=== PATIENT | female | born 1950 | race Caucasian/White ===

== ENCOUNTER → 2023-08-15 13:33 | Outpatient (REF) | payer MEDICARE, OTHER, SELFPAY | LOC: REG 13:33 | PROVIDERS: ATTENDING PHYSICIAN Family Medicine | DX: R19.7 Diarrhea, unspecified (principal) | CPT/HCPCS: 87045; 87046; 87324; 87427; 87449 ==

== ENCOUNTER 2023-08-21 20:24 | Inpatient (IN) | payer MEDICARE, OTHER, SELFPAY ==
[2023-08-21] VITALS (7 sets, daily range): BP systolic 131–168; BP diastolic 69–84; BMI 24.0
[2023-08-21 15:01] LABS: % Basophils 0.7 % (0-2); % Immature Granulocytes 0.5 % (0-0.5); % Lymphocytes 24.7 % (20.5-51.1); % Monocytes 9.5 % (1.7-9.3); % Neutrophils 63.6 % (42.2-75.2); Absolute Basophils 0.1 10^3/uL (0-0.2); Absolute Eosinophils 0.1 10^3/uL (0-0.7); Absolute Monocytes 0.8 10^3/uL (0.1-0.6); Absolute Neutrophils 5.2 10^3/uL (1.4-6.5); Hemoglobin 13.7 g/dL (12.0-16.0); Mean Corp Hgb Conc. 34.3 g/dL (33.0-37.0); Mean Corpuscular Volume 84.7 fL (81.0-99.0); Mean Platelet Volume 8.9 fL (7.4-10.4); Nucleated Red Blood Cells % 0 %; Platelet Count 359 10^3/uL (130-400); Red Blood Cell Count 4.72 10^6/uL (4.20-5.40); Red Cell Dist. Width 12.5 % (11.5-14.5); White Blood Cell Count 8.1 10^3/uL (4.8-10.8)
[2023-08-21 15:11] LABS: Lipase 91 U/L (23-300)
[2023-08-21 15:16] LABS: ALT (SGPT) 613 U/L (0-35); AST (SGOT) 296 U/L (14-36); Alkaline Phosphatase 111 U/L (38-126); Blood Urea Nitrogen 15 mg/dl (7-17); Calcium 9.4 mg/dl (8.4-10.2); Carbon Dioxide 27 mmol/L (22-30); Chloride 99 mmol/L (98-107); Glucose 151 mg/dl (70-99); Sodium 135 mmol/L (135-145); Total Bilirubin 0.5 mg/dl (0.2-1.3); Total Protein 6.6 g/dl (6.3-8.2); eGFR > 60.00
--- NOTE | 2023-08-21 16:21 | ED.GENMED ---
History of Present Illness
General
Chief Complaint: Rectal Bleeding
Source: patient
Exam Limitations: none
Time Seen by Provider: 08/21/23 16:00
Nursing documentation reviewed up to this point in time: agreed with
Travel History
Have you had any contact with someone who has COVID-19?: No
Do you have any symptoms of coronavirus? Fever > 100 degrees, chills, cough, shortness of breath, sore throat, loss of taste or smell, muscle aches, or headache?: No
History of Present Illness
History of Present Illness:
73-year-old female states she has had diarrhea for 2-1/2 weeks. 9 days ago she noticed some blood in the diarrhea so her PCP took stool samples which did not show any bacterial infection. Her appetite has been poor. She started the BRAT diet and
was improved for a few days but 5 days ago bloody diarrhea increased, stopped 2 days ago, but returned 2:30 a.m. today 'even worse.' She does get crampy abd pains prior to diarrhea. Abd pain is 'a little' now, does feel bloated. Denies fever/chills,
denies n/v.
Past History
Past History
ED Past Medical History: HTN and Hypercholesterolemia
ED Past Surgical History:
Social History
Tobacco: Non-smoker
Alcohol: None
Drug: None
Personal:
Living: with family
Review of Systems
Review of Systems
Allergies reviewed?: Yes
All Other Systems: ROS reviewed and negative except as documented in HPI and ROS
Constitutional: Denies fever
Respiratory: Denies trouble breathing
Cardiac: Denies chest pain
ABD/GI: Reports abdominal pain, diarrhea and bloody stools; Denies nausea or vomiting
: Denies dysuria, frequency, difficulty voiding or urgency
Musculoskeletal: Reports no symptoms
Skin: Reports no symptoms
Neurological: Reports no symptoms
Phy Exam
Physical Exam
Physical Exam:
GENERAL: No acute distress. A&Ox3.
CONSTITUTIONAL: Afebrile.
EYES: clear, conjunctivae normal
ENMT: moist mucus membranes, Pharynx nl
RESPIRATORY: Regular respirations, nonlabored, lungs clear.
CARDIOVASCULAR: Regular rate and rhythm, no murmurs, no rubs.
GI: Soft, mildly generally tender, normal BS
MUSCULOSKELETAL: Moves with ease. Well perfused.
SKIN: Warm, dry, pink
PSYCH: Normal mood and affect. Well kept, interactive and appropriate
NEUROLOGIC: Awake, alert and oriented. No focal neurological deficits
Course
Orders/Labs/Results
Orders:
Orders
08/21/23 14:45
C-Reactive Protein Stat
Comment: ADD ON
Complete Blood Count/With Diff Urgent
Comprehensive Metabolic Panel Urgent
Lipase Stat
08/21/23 Dinner
NPO
Allow oral meds: Yes
Allow clear liquids: Sips of Clears
08/21/23 16:42
CT Abd/Pel (IV only)-DH only Urgent
Comment:
Reason For Exam: bloody diarrhea, abd cramps
08/21/23 16:56
Norovirus by PCR Urgent
FRANCIS Source: ST
Specimen Description:
Date Specimen was Collected: 08/21/23
Time Specimen was Collected: 16:53
Comment: Add on by Betzy Muller
STOOL [C difficile Antigen & Toxins] Urgent
FRANCIS Source: Feces/Stool
Specimen Description:
Date Specimen was Collected: 08/21/23
Time Specimen was Collected: 16:53
Stool Culture Urgent
FRANCIS Source: Feces/Stool
Specimen Description:
Date Specimen was Collected: 08/21/23
Time Specimen was Collected: 16:54
08/21/23 18:55
Piperacillin/Tazo 3.375 Gram [Zosyn] 3.375 gram in 50 ml IV NOW
08/21/23 18:58
GASTROINTESTINAL CONSULT Urgent
Consulting Provider: Vivian Bhat
Was physician already notified: Yes
Reason for consult: pancolitis
08/21/23 18:59
Add On- LAB Urgent
Tests Added?: CRP
Add On- LAB Urgent
Tests Added?: Stool WBC
08/21/23 20:00
Admit/Transfer Patient As Directed
Co-Sign Provider:
Level of Care: Inpatient admission
Assign to:: Medical/Surgical
Physician / Group: tee
Diagnosis: pancolitis
Reason for Hospitalization: pancolitis
Expected length of stay greater than two midnights?: Yes
ELOS- Estimated Length of Stay in days: 2
I certify the patient meets the requirements for IP care: Yes
Code Status As Directed
Resuscitation Status: Full Code
08/21/23 20:07
Add On- LAB Urgent
Tests Added?: stool norovirus
08/21/23 20:46
0.9% Sodium Chloride 1000 ml [Nss] 1,000 ml IV 100 mls/hr
Ondansetron Injectable [Zofran] 4 mg IV Q6HPRN PRN
08/21/23 20:46
Activity As Directed
Activity Level: As Tolerated
Pneumatic Compression Sleeves As Directed
Type: Knee high
Vital Signs As Directed
Frequency: Per unit guidelines
DX Deep Vein Thrombosis Video Routine
08/21/23 22:00
Cetirizine HCl [Zyrtec] 10 mg PO HS
Lisinopril [Zestril] 20 mg PO HS
08/22/23 04:00
Piperacillin/Tazo 3.375 Gram [Zosyn] 3.375 gram in 50 ml IV Q6H
08/22/23 06:00
Complete Blood Count/With Diff IN AM
Comprehensive Metabolic Panel IN AM
08/22/23 08:00
Digoxin [Lanoxin] 250 mcg PO DAILY
Lisinopril [Zestril] 10 mg PO DAILY
Verapamil Extended Release [Calan Extended Release] 180 mg PO BID
08/22/23 18:00
omega 6-put-hee-fish oil [Fish Oil] 1 cap PO QPM
Abnormal Lab Results
08/21/23
14:45
Absolute Monos (auto) 0.8 H 10^3/uL
(0.1-0.6)
Monocytes % 9.5 H %
(1.7-9.3)
Glucose 151 H mg/dl
(70-99)
AST 296 H U/L
(14-36)
ALT 613 H* U/L
(0-35)
C-Reactive Protein 39.70 H mg/L
(0.0-10.00)
08/21/23 14:45
08/21/23 14:45
Vital Signs
Initial and Last Documented VS:
Initial Vital Signs
Temp Pulse Resp BP Pulse Ox
98.6 F 110 18 168/81 99
08/21/23 14:37 08/21/23 14:37 08/21/23 14:37 08/21/23 14:37 08/21/23 14:37
Last Documented Vital Signs
Temp Pulse Resp BP Pulse Ox
98.9 F 90 16 147/84 96
08/21/23 20:51 08/21/23 21:42 08/21/23 20:51 08/21/23 21:42 08/21/23 20:51
MDM/Problems Addressed
Differential Diagnosis Includes:
Diverticulitis, ischemic colitis, infectious colitis, fissure
MDM/Problems Addressed:
73-year-old female states she has had diarrhea for 2-1/2 weeks. 9 days ago she noticed some blood in the diarrhea so her PCP took stool samples which did not show any bacterial infection. Her appetite has been poor. She started the BRAT diet and
was improved for a few days but 5 days ago bloody diarrhea increased, stopped 2 days ago, but returned 2:30 a.m. today 'even worse.' She does get crampy abd pains prior to diarrhea. Abd pain is 'a little' now, does feel bloated. Denies fever/chills,
denies n/v.
Afebrile, NAD
CBC normal
CMP: AST elevated at 296, ALT elevated 613.
Mucous bloody stool sent for cultures
08/21/2023 1900 PM
Plan: Admit: Pancolitis, transaminitis
Hospitalist and GI Dr. Bhat notified of admission
GI consult in.
Patient remains comfortable
*Critical Care Note
Total Time (30-74mins, 75-104mins- exclusive of procedures): Not Applicable
ED Attending Note
-
Portions of this chart may have been created with voice recognition software.� Occasional wrong word or��sound alike� substitutions may have occurred due to the inherent limitations of voice recognition software.
Discharge Plan
Departure
Patient Disposition: Admit
Date of Disposition: 08/21/23
Time of Disposition: 18:56
Admit to: Med/Surg
Presentation/result/management discussed w/ accepting MD/DO: Hospitalist
Condition: Fair
Discharge Problem:
Pancolitis, Transaminitis
Interventions
Interventions:
*Risk Screen - Suicide Last Done: 08/21/23 14:40
*General Assessment Last Done: 08/21/23 14:40
*Neglect/Abuse Screening Last Done: 08/21/23 14:40
ED- Fall Risk Assessment Last Done: 08/21/23 20:50
*ED COVID-19 Vaccine History Last Done: 08/21/23 20:28
*Nursing Disposition Last Done: 08/21/23 20:50
NE-Cqswxr-Hwlhcjyqjw Assessment Last Done: 08/21/23 16:22
ED- Cardiac Assessment Last Done: 08/21/23 16:22
ED- Pulmonary Assessment Last Done: 08/21/23 16:22
Discharge Date and Time
Discharge Date/Time: 08/21/23 20:50
[2023-08-21] MEDS: ZOSYN 50 IV (19:11)
--- NOTE | 2023-08-21 20:02 | HPS.HSE ---
Addendum entered and electronically signed by Oli Menjivar MD 08/21/23 20:06:
Continued verapamil.
Original Note:
Family Physician
-
Family Physician: Jorje Nichole
Chief Complaint
-
bloody diarrhea
History of Present Illness
73-year-old female with past medical history of hypertension, hypercholesteremia, SVT presenting with diarrhea for the past 2 and half weeks. 9 days ago she noted some blood in the diarrhea as her primary care physician took a stool samples which
did not show any bacterial infection. Appetites been poor. She was started on brat diet which improved for few days but 5 days ago bloody diarrhea increased and again stopped 2 days ago but returned at 2:30 AM today even worse than previously.
She has been getting crampy abdominal pain prior to diarrhea. Does feel bloated. Has chills but denies fever. Denies nausea or vomiting.
She denies any recent travel or eating any questionable restaurant food although she did have some [place] food yesterday.
Denies any history of GI problems.
Drinks alcohol occasionally. Denies smoking.
Medical History
Past Medical History
Past Medical History: Reports Other (hypertension, hypercholesteremia, SVT)
Past Surgical History: Reports None
Social History
Tobacco: Non-smoker
Alcohol: Occasional
Drug: None
Family History
Family History: Not pertinent
Allergies / Home Medications
Allergies reflects when Allergies were last updated in [employer].
Home Medications with original date entered in [employer]
Allergy/Medication List:
Allergies
Allergy/AdvReac Type Severity Reaction Status Date / Time
Sulfa (Sulfonamide Allergy 'gigantic Verified 08/21/23 14:37
Antibiotics) hives'
cats Allergy itchey eyes Uncoded 04/01/23 21:38
molds/pollen Allergy Unknown Uncoded 04/01/23 21:38
Home Medications
MILK THISTLE 1 cap PO DAILY@1330 06/04/09
verapamil 180 mg 24 hr capsule,extended release 180 mg PO BID 06/04/09
digoxin 250 mcg (0.25 mg) tablet 250 mcg PO DAILY 04/01/23
Berberine 1 tab PO QPM 08/21/23
Cbd Oil 1 dose PO HS 08/21/23
Eleuthero 1 tab PO DAILY 08/21/23
L-Lysine 1 tab PO DAILY 08/21/23
Lactobac no.2-Bifidobac no.1-S. thermo 112.5 billion cell capsule (Visbiome) 1 cap PO DAILY 08/21/23
MSM 1 dose PO DAILY 08/21/23
Nmn Supplement 1 cap PO DAILY 08/21/23
Prebiotic Powder 1 dose PO DAILY 08/21/23
Rhodiola Rosea 1 tab PO BID 08/21/23
RAS-e 1 tab PO HS 08/21/23
[place]'s wort 1 cap PO BID 08/21/23
Turmeric +Bioperine + Curcumin 1 tab PO DAILY 08/21/23
Vitamin C 1 tab PO DAILY@132908/21/23
acetylcarnitine HCl 250 mg capsule 250 mg PO DAILY@132908/21/23
acetylcysteine 600 mg capsule (NAC) 600 mg PO DAILY 08/21/23
alpha lipoic acid 1 tab PO DAILY 08/21/23
apple cider vinegar 1 tbsp PO BID 08/21/23
bergamot extract 500 mg capsule (Bristol Bergamot) 500 mg PO DAILY 08/21/23
boron 6 mg tablet 6 mg PO QPM 08/21/23
cetirizine 10 mg tablet 10 mg PO HS 08/21/23
cholecalciferol (vitamin D3) 1 tab PO DAILY 08/21/23
cinnamon bark extract 500 mg tablet 1,000 mg PO QPM 08/21/23
coQ10 (ubiquinol) 200 mg capsule 200 mg PO DAILY@132908/21/23
cyanocobalamin (vitamin B-12) 1 tab PO DAILY 08/21/23
glucosamine sulf dipot chlr,msm,chond 550 mg-C 30 mg-bernadette 1 mg capsule (Glucosamine Chondroitin) 1 cap PO BID 08/21/23
lisinopril 10 mg tablet 10 mg PO DAILY 08/21/23
lisinopril 10 mg tablet 20 mg PO HS 08/21/23
magnesium 1 tab PO QPM 08/21/23
omega 2-xyz-xem-fish oil 1,000 mg (120 mg-180 mg) capsule (Fish Oil) 1 cap PO QPM 08/21/23
pantethine 1 cap PO DAILY 08/21/23
quercetin 500 mg capsule 500 mg PO DAILY 08/21/23
selenium 1 tab PO DAILY@1330 08/21/23
vitamin A 1 tab PO DAILY 08/21/23
vitamin K 1 tab PO DAILY 08/21/23
zinc 1 tab PO DAILY 08/21/23
Review of Systems
-
History Source: Patient
A 12 point ROS was completed and negative except as noted: Yes
Constitutional: Reports No Symptoms
EENT: Reports No Symptoms
Respiratory: Reports No Symptoms
Cardiac: Reports No Symptoms
Abdomen/GI: Reports See HPI
: Reports No Symptoms
Musculoskeletal: Reports No Symptoms
Skin: Reports No Symptoms
Neurological: Reports No Symptoms
Endocrine: Reports No Symptoms
Hematologic/Lymphatic: Reports No Symptoms
Psych: Reports No Symptoms
Physical Exam
Vital Signs
Vital Signs
Temp Pulse Resp BP Pulse Ox
98.6 F 88 15 136/82 98
08/21/23 14:37 08/21/23 19:15 08/21/23 19:15 08/21/23 18:00 08/21/23 19:15
Physical Exam
General: Well Developed, Well Nourished and No Apparent Distress
HEENT: NormoCephalic, Moist mucous membranes and Atraumatic
Respiratory: Clear
Cardiac: S1/S2 and Regular Rhythm; No Murmur or Rub
GI: Soft, Non Distended, Normal Bowel Sounds and Tender; No Organomegaly
Rectal: Deferred by Provider
Musculoskeletal: No Clubbing, No Cyanosis and No Edema
Skin: No Rash
Neuro: Nonfocal/grossly intact
Laboratory Results
-
08/21/23 14:45
08/21/23 14:45
Laboratory Results
Total Bilirubin 0.5 mg/dl (0.2-1.3) 08/21/23 14:45
AST 296 U/L (14-36) H 08/21/23 14:45
ALT 613 U/L (0-35) H* 08/21/23 14:45
Alkaline Phosphatase 111 U/L (38-126) 08/21/23 14:45
Lipase 91 U/L (23-300) 08/21/23 14:45
Data Reviewed
-
Lab Data: Labs Reviewed by me
Old Records: Reviewed
Impression/Plan
-
IMPRESSION:
PLAN:
# Severe diffuse pancolitis with bloody diarrhea
-Check stool culture, C. difficile, norovirus
-N.p.o.
-IV fluids
-Zosyn
-GI consulted
# Transaminitis likely related to colitis
-CT shows mild upper abdominal ascites
-Continue to monitor
-Hold all supplements for now
History of SVT
-Continue digoxin
Essential hypertension
-Continue lisinopril
Hypercholesterolemia
Full code
DVT prophylaxis�SCDs
N.p.o.
--- NOTE | 2023-08-21 21:00 | PTCARENOTE ---
Received pt from the ED into room 2126. Patient able to ambulate without assistance to the bed. Reviewed history with pt. Pt states pain in stomach 'comes in waves' and is not currently experiencing pain. AAOx3. VSS. Assessment as documented. NS
running at 100ml/hr in L AC. Patient has no further complaints and is resting comfortably in bed with the call heredia within reach.
[2023-08-21] MEDS: NSS 1000 IV (21:04)
[2023-08-21] MEDS: ZESTRIL 20 MG PO (21:41)
[2023-08-21] MEDS: ZYRTEC 10 MG PO (21:41)
[2023-08-21] MEDS: MELATONIN 5 MG PO (21:42)
[2023-08-21] MEDS: CALAN EXTENDED RELEASE 180 MG PO (21:42)
[2023-08-22] MEDS: ZOSYN 50 IV ×4 (03:53→22:34)
[2023-08-22 05:15] VITALS: BMI 24.0
[2023-08-22 05:22] LABS: % Eosinophils 3.7 % (0-6); % Immature Granulocytes 0.5 % (0-0.5); % Lymphocytes 31.8 % (20.5-51.1); % Monocytes 10.6 % (1.7-9.3); % Neutrophils 52.4 % (42.2-75.2); Absolute Basophils 0.1 10^3/uL (0-0.2); Absolute Eosinophils 0.3 10^3/uL (0-0.7); Absolute Lymphocytes 2.5 10^3/uL (1.2-3.4); Absolute Monocytes 0.8 10^3/uL (0.1-0.6); Absolute Neutrophils 4.1 10^3/uL (1.4-6.5); Hematocrit 37.6 % (37.0-47.0); Hemoglobin 12.7 g/dL (12.0-16.0); Mean Corp Hgb Conc. 33.8 g/dL (33.0-37.0); Mean Corpuscular Hgb 28.7 pg (27.0-31.0); Mean Corpuscular Volume 85.1 fL (81.0-99.0); Mean Platelet Volume 9.3 fL (7.4-10.4); Nucleated Red Blood Cells % 0 %; Platelet Count 327 10^3/uL (130-400); Red Blood Cell Count 4.42 10^6/uL (4.20-5.40); Red Cell Dist. Width 12.5 % (11.5-14.5); White Blood Cell Count 7.8 10^3/uL (4.8-10.8)
[2023-08-22 05:32] LABS: ALT (SGPT) 519 U/L (0-35); AST (SGOT) 253 U/L (14-36); Albumin 3.5 g/dl (3.5-5.0); Alkaline Phosphatase 105 U/L (38-126); Blood Urea Nitrogen 10 mg/dl (7-17); Calcium 8.7 mg/dl (8.4-10.2); Carbon Dioxide 23 mmol/L (22-30); Chloride 104 mmol/L (98-107); Estimated Creatinine Clearance 66 ml/min; Glucose 105 mg/dl (70-99); Potassium 3.5 mmol/L (3.5-5.1); Sodium 135 mmol/L (135-145); Total Bilirubin 0.6 mg/dl (0.2-1.3); eGFR > 60.00
[2023-08-22] MEDS: NSS 1000 IV (07:43)
[2023-08-22 07:54] VITALS: BP 127/63
[2023-08-22] MEDS: CALAN EXTENDED RELEASE 180 MG PO ×2 (08:38→19:51)
[2023-08-22] MEDS: LANOXIN 250 MCG PO (08:39)
[2023-08-22] MEDS: ZESTRIL 10 MG PO (08:39)
--- NOTE | 2023-08-22 11:07 | W.PN.HOSP.TC ---
Today's Communication/Plan
-
Add on stool studies
Stop all ljwu-bxy-pepqmae medicines
GI evaluation
Assessment / Plan
Assessment / Plan
73-year-old female with diarrhea for the past 2 and half weeks. Patient stated that she had some postnasal drip and some URI symptoms 2 and half weeks ago. She states that it is normal for her to have loose stools when she has a URI and postnasal
drip. She stated that it got better but it came back. Has some cramps but no real pain. No recent antibiotic use or travel. She lives with her he does not have any symptoms like this. No history of inflammatory bowel disease
On examination awake alert oriented
Cardiovascular system S1-S2 appreciated
Abdomen slightly distended, nontender
No edema
Neuro nonfocal
# Severe pancolitis with bloody diarrhea
C. difficile negative, norovirus negative
Repeat cultures pending cultures from 08/15/2023 negative
Yersinia and also Giardia-added on
Stool for WBC
Continue antibiotics
GI evaluation
If no answers with the stools may need flex sig to rule out microscopic colitis or IBD
Patient is on 33 different ofeo-sxa-klvwqot supplements
Unclear if some of this can cause her symptoms
Colonoscopy 2018-nonbleeding internal hemorrhoids, 6 mm polyp in the transverse colon
Sips of clears and IVF
# Transaminitis
Patient is on 33 different dpbl-yfh-qtcclbv supplements
Check hepatitis serologies
Imaging of Liver and gallbladder unremarkable as per CT
Defer to GI if patient needs Dopplers
# Hypertension continue lisinopril
# History of SVTs-continue verapamil, Digoxin
Check Dig Level.
# DVT prophylaxis-SCDs given bloody bowel movements
# Full code
Discussed with nursing
Anticipated Discharge: 24 - 48 hours
Subjective/Interval History
-
Date of Service: August 22, 2023
Objective Data
-
Labs:
Laboratory Results
08/22/23
04:24
WBC 7.8
Hgb 12.7
Hct 37.6
Plt Count 327
Sodium 135
Potassium 3.5
Chloride 104
Carbon Dioxide 23
BUN 10
Creatinine 0.6
Glucose 105 H
Calcium 8.7
Total Bilirubin 0.6
AST 253 H
ALT 519 H*
Alkaline Phosphatase 105
Vital Signs:
Vital Signs
Temp Pulse Resp BP Pulse Ox
98.3 F 74 14 127/63 97
08/22/23 07:54 08/22/23 08:39 08/22/23 07:54 08/22/23 08:38 08/22/23 09:59
I&O
08/21/23 08/22/23 08/23/23
06:59 06:59 06:59
Intake Total 1410 / 1410
Balance 1410 / 1410
[2023-08-22 12:02] LABS: Digoxin 0.8 ng/ml (0.8-2.0)
[2023-08-22] MEDS: D5/0.45%NSS with KCL 10 MEQ 1000 IV (12:04)
--- NOTE | 2023-08-22 12:49 | CON.GI ---
Addendum entered and electronically signed by Vivian Bhat DO 08/22/23 16:56:
Patient seen and examined independently of [facility]. I agree with her note with my additions below
Zaida is a 73-year-old female with no known inflammatory bowel disease who presents with roughly 3 to 4 weeks of diarrhea followed by bloody stools. Intermittently throughout the year she will has episodes of more softer and some mucus but always
formed. With no travel, no change in medications she started having diarrhea including nocturnal with multiple episodes. Over a week ago she started having blood mixed in with the diarrhea. Has abdominal discomfort but no severe pain. She had
outpatient stool studies as well as here which have been negative for C. difficile, Salmonella Shigella Campylobacter, Legionella urinary antigen, still waiting on WBCs, Yersinia, Giardia cryptosporidium. She denies any significant nausea vomiting
fever or chills. She lost her appetite during this and has only lost a couple of pounds. Since her admission she is already improving. She only had 2 stools today and her abdomen is less tender this afternoon.
# Bloody diarrhea -CT scan with IV contrast only shows severe diffuse pancolitis with significant wall thickening of the entire colon
-- Likely infectious versus inflammatory
--Patient is hemodynamically stable, normal CBC with no anemia and no leukocytosis
-- So far stool studies have been negative
-- I offered her a flexible sigmoidoscopy tomorrow but she would like to be more conservative since she is already starting to improve
-- Her colonoscopy in [address] Galicia did not show any signs of inflammatory bowel disease
--- continue antibiotics since the diarrhea is bloody
--Clear liquid diet
--If patient does not dramatically improve over the weekend would do at least a flexible sigmoidoscopy on Saturday otherwise a full colonoscopy outpatient with Dr. Galicia upon recovery
Hepatocellular injury#
-- This is new. No prior history of elevated liver enzymes. Normal total bilirubin and alkaline phosphatase. Likely in infectious in nature
--Monitor and trend
--CT scan showed normal liver
--Avoid hepatotoxins
--Hepatitis panel already ordered
Original Note:
Consultation
-
Date/Time Consultation Requested: 08/21/23 1858
Date/Time Consultation Performed: 08/22/23 1230
Requesting Provider: ERN[facility] Nevraez
Performing Provider: Dr.. Bhat/[facility] You
Reason for Consultation: pancolitis
Medical History
Chief Complaint / HPI
Chief Complaint: bloody diarrhea
History of Present Illness:
73-year-old female with past medical history Lyme disease, SVT, hypertension, hyperlipidemia, osteopenia as well as adenoma 2019 presents the emergency room with almost 3-week history of diarrhea followed by bloody diarrhea. Asked to evaluate for
the same. Patient states that over the past 4 to 5 weeks she has noticed that her stools have become softer. She states that intermittently when she has postnasal drip she notices that her stools become on the soft side and she notices that she
also has mucus coating those bowel movements as well. She states this has been ongoing for years. She states that over the past 3 weeks following that initial 5 weeks her stools became progressively soft to then loose and diarrhea-like. Over the
past 3 weeks she has had diarrhea-like stools that were then watery and then over the past week has had intermittent episodes of blood mixed within her stools. She sought the assistance of her primary care physician over the past week and had
outpatient stool studies performed. These were performed on 08/15/2023 they were negative for C. difficile,Negative for Salmonella/Shigella, negative for Campylobacter and negative for E. coli/Shigella.The patient then stated that she did not have
much of an appetite and she was eating a brat like diet. She states that she then became ravenous and started eating more and that produced more watery bowel movements. She then had more blood within her stools. She called her PCP again and he
stated that she would proceed to the emergency room at that point. The patient felt 'chilled'. However denies any fevers, melena, abdominal pain, dysphagia or odynophagia. She has no family history of inflammatory bowel disease that she is aware
of. She has no joint pains or rashes. She is not taking any anti-inflammatories. She does take multiple jvix-upr-akijqma supplements however she was not taking any of these during that time. She has had no recent travel, no recent antibiotics,
no sick contacts, she has not eaten anything recently that was raw or spoiled. She denies any cough. She does have well water however her lives with her and he is not ill. She has not visited or has been in any contact with any animals
other than her 2 cats. This morning she only had 1 episode of a small amount of brown stool mixed with some bright red blood. She is tolerating a clear liquid diet (no red liquids). She only has some abdominal cramping associated with bowel
movements.
Past Medical History
Past Medical History: Arrhythmias (SVT), HTN, Hypercholesterolemia and Other (Lyme disease, osteopenia, colon polyp (tubular adenoma 2019))
Past Surgical History: None
Social History
Tobacco: Non-Smoker
Alcohol: Occasional
Drug: None
Personal:
Living: With Family
Family History
Family History: Other (No fam hx of GI malignancy or IBD)
Allergies / Home Medications
Allergy/AdvReac Type Severity Reaction Status Date / Time
Sulfa (Sulfonamide Allergy 'gigantic Verified 08/21/23 14:37
Antibiotics) hives'
vaccine adjuvant system, Allergy Swelling Verified 08/21/23 20:39
AS01B liposomal
cats Allergy itchey eyes Uncoded 04/01/23 21:38
molds/pollen Allergy Unknown Uncoded 04/01/23 21:38
Medication Instructions Recorded
MILK THISTLE 1 cap PO DAILY@1330 06/04/09
verapamil 180 mg 24 hr 180 mg PO BID 06/04/09
capsule,extended release
digoxin 250 mcg (0.25 mg) tablet 250 mcg PO DAILY 04/01/23
Berberine 1 tab PO QPM 08/21/23
Cbd Oil 1 dose PO HS 08/21/23
Eleuthero 1 tab PO DAILY 08/21/23
L-Lysine 1 tab PO DAILY 08/21/23
Lactobac no.2-Bifidobac no.1-S. 1 cap PO DAILY 08/21/23
thermo 112.5 billion cell capsule
(Visbiome)
MSM 1 dose PO DAILY 08/21/23
Nmn Supplement 1 cap PO DAILY 08/21/23
Prebiotic Powder 1 dose PO DAILY 08/21/23
Rhodiola Rosea 1 tab PO BID 08/21/23
RAS-e 1 tab PO HS 08/21/23
[place]'s wort 1 cap PO BID 08/21/23
Turmeric +Bioperine + Curcumin 1 tab PO DAILY 08/21/23
Vitamin C 1 tab PO DAILY@132908/21/23
acetylcarnitine HCl 250 mg capsule 250 mg PO DAILY@0 08/21/23
acetylcysteine 600 mg capsule (NAC) 600 mg PO DAILY 08/21/23
alpha lipoic acid 1 tab PO DAILY 08/21/23
apple cider vinegar 1 tbsp PO BID 08/21/23
bergamot extract 500 mg capsule 500 mg PO DAILY 08/21/23
([place] Bergamot)
boron 6 mg tablet 6 mg PO QPM 08/21/23
cetirizine 10 mg tablet 10 mg PO HS 08/21/23
cholecalciferol (vitamin D3) 1 tab PO DAILY 08/21/23
cinnamon bark extract 500 mg tablet 1,000 mg PO QPM 08/21/23
coQ10 (ubiquinol) 200 mg capsule 200 mg PO DAILY@1330 08/21/23
cyanocobalamin (vitamin B-12) 1 tab PO DAILY 08/21/23
glucosamine sulf dipot 1 cap PO BID 08/21/23
chlr,msm,chond 550 mg-C 30 mg-bernadette
1 mg capsule (Glucosamine
Chondroitin)
lisinopril 10 mg tablet 10 mg PO DAILY 08/21/23
lisinopril 10 mg tablet 20 mg PO HS 08/21/23
magnesium 1 tab PO QPM 08/21/23
omega 4-lob-ehj-fish oil 1,000 mg 1 cap PO QPM 08/21/23
(120 mg-180 mg) capsule (Fish Oil)
pantethine 1 cap PO DAILY 08/21/23
quercetin 500 mg capsule 500 mg PO DAILY 08/21/23
selenium 1 tab PO DAILY@1330 08/21/23
vitamin A 1 tab PO DAILY 08/21/23
vitamin K 1 tab PO DAILY 08/21/23
zinc 1 tab PO DAILY 08/21/23
Review of Systems
-
All other systems: A 12 pt ROS was Negative except as stated above in HPI
Vital Signs
Temp Pulse Resp BP Pulse Ox
98.3 F 74 14 127/63 97
08/22/23 07:54 08/22/23 08:39 08/22/23 07:54 08/22/23 08:38 08/22/23 09:59
Physical Exam
Exam
General: No Apparent Distress
HEENT: Normocephalic and Anicteric
Respiratory: Clear
Cardiac: Regular Rhythm
GI: Soft, Non Tender, Normal Bowel Sounds and Distended (mildly distended)
Musculoskeletal: No Edema
Skin: Warm and Dry
Neuro: AO x 3
Psych: Calm
Results
WBC 7.8 10^3/uL (4.8-10.8) 08/22/23 04:24
Hgb 12.7 g/dL (12.0-16.0) 08/22/23 04:24
Hct 37.6 % (37.0-47.0) 08/22/23 04:24
MCV 85.1 fL (81.0-99.0) 08/22/23 04:24
Plt Count 327 10^3/uL (130-400) 08/22/23 04:24
Absolute Neuts (auto) 4.1 10^3/uL (1.4-6.5) 08/22/23 04:24
Sodium 135 mmol/L (135-145) 08/22/23 04:24
Potassium 3.5 mmol/L (3.5-5.1) 08/22/23 04:24
Chloride 104 mmol/L (98-107) 08/22/23 04:24
Carbon Dioxide 23 mmol/L (22-30) 08/22/23 04:24
BUN 10 mg/dl (7-17) 08/22/23 04:24
Creatinine 0.6 mg/dL (0.6-1.0) 08/22/23 04:24
Calcium 8.7 mg/dl (8.4-10.2) 08/22/23 04:24
Total Bilirubin 0.6 mg/dl (0.2-1.3) 08/22/23 04:24
AST 253 U/L (14-36) H 08/22/23 04:24
ALT 519 U/L (0-35) H* 08/22/23 04:24
Alkaline Phosphatase 105 U/L (38-126) 08/22/23 04:24
Lipase 91 U/L (23-300) 08/21/23 14:45
Diagnostic Image Results:
CT Abd/Pelvis with IV contrast only:
Severe diffuse pancolitis with significant wall thickening of the entire colon.
Prior GI Procedures:
EGD: never
Colonoscopy: 06/24/2018 (Do) �- Non-bleeding internal hemorrhoids.
�� � � � � � � � � � - One 6 mm polyp in the transverse colon, removed with a
�� � � � � � � � � � jumbo cold forceps. Resected and retrieve (tubular adenoma)
Assessment / Plan
-
73-year-old female with past medical history Lyme disease, SVT, hypertension, hyperlipidemia, osteopenia as well as adenoma 2018 presents the emergency room with almost 3-week history of diarrhea followed by bloody diarrhea. Asked to evaluate for
the same. Patient states that over the past 4 to 5 weeks she has noticed that her stools have become softer. She states that intermittently when she has postnasal drip she notices that her stools become on the soft side and she notices that she
also has mucus coating those bowel movements as well. She states this has been ongoing for years. She states that over the past 3 weeks following that initial 5 weeks her stools became progressively soft to then loose and diarrhea-like. Over the
past 3 weeks she has had diarrhea-like stools that were then watery and then over the past week has had intermittent episodes of blood mixed within her stools. Laboratory data shows WBC 7.8, hemoglobin 12.7, hematocrit 37.6, platelet count 327
Sodium 135, potassium 3.5, BUN 10, creatinine 0.6, total bilirubin 0.6, AST of 253 down from 296, ALT of 519, down from 613, alk phos 105, CRP of 39.7, lipase 91. Outpatient stool studies performed on 08/15/23 were negative for C. difficile,Negative
for Salmonella/Shigella, negative for Campylobacter and negative for E. coli/Shigella.Currently we are pending repeats as well as stool for crypto, WBC and giardia. Acute Hepatitis panel was also ordered given transaminitis. Patient has not been
hypotensive here and denies any issues of near syncope at home. Prior LFTs have been normal in the past. Patient has been off of her OTC supplements for a couple weeks.
Impression:
Diarrhea, slow onset over a couple weeks
Pancolitis on CT
Transaminitis
Plan:
-Await Giardia, crypo, Stool WBC
-Clears (no reds)
-Check Hepatitis panel
-Check urine legionella
-LFTs, INR, CBC in am
-Check ESR (CRP already elevated)
-To consider at least flex sig in patient if above unrevealing to r/o IBD. Patient is due for colonoscopy. Will need in 8 weeks anyway for repeat screening.
-Further recommendations to be forthcoming.
Data Reviewed
-
CT Scan: Report Reviewed by me
Old Records: Reviewed
-
-
Thank you for consultation and allowing me to participate in the patient's care. Please call the cloth sponger GI physician during the after hours with any questions or concerns.
[2023-08-22 14:27] LABS: Erythrocyte Sed Rate 6 mm/hour (0-20)
[2023-08-22 15:05] VITALS: BP 132/63
--- NOTE | 2023-08-22 15:42 | CM ---
Initial assessment completed with patient ( in room). Patient lives in a 2 story home with basement and 2 steps to enter, B/B on 2nd and 1/2 bath on . [employer] patient was independent, drove and retired. No Services and No DME. No psychiatric
history. [facility]acy is [facility] in [place] and PCP is Dr. Nichole @ [facility] in [place]. ANTICIPATE NO NEEDS AT DISCHARGE.
[2023-08-22] MEDS: ZYRTEC 10 MG PO (22:34)
[2023-08-22] MEDS: ZESTRIL 20 MG PO (22:34)
[2023-08-22] MEDS: MELATONIN 5 MG PO (23:01)
[2023-08-22 23:50] VITALS: BP 132/62
[2023-08-23] MEDS: D5/0.45%NSS with KCL 10 MEQ 1000 IV ×2 (03:11→14:51)
[2023-08-23] MEDS: ZOSYN 50 IV ×4 (04:04→21:47)
[2023-08-23 04:42] VITALS: BMI 24.5
[2023-08-23 06:45] LABS: INR 1.18
[2023-08-23 06:48] LABS: Hematocrit 32.3 % (37.0-47.0); Hemoglobin 10.9 g/dL (12.0-16.0); Mean Corp Hgb Conc. 33.7 g/dL (33.0-37.0); Mean Corpuscular Hgb 28.9 pg (27.0-31.0); Mean Corpuscular Volume 85.7 fL (81.0-99.0); Mean Platelet Volume 9.4 fL (7.4-10.4); Platelet Count 289 10^3/uL (130-400); Red Blood Cell Count 3.77 10^6/uL (4.20-5.40); Red Cell Dist. Width 12.6 % (11.5-14.5); White Blood Cell Count 7.7 10^3/uL (4.8-10.8)
[2023-08-23 06:59] LABS: ALT (SGPT) 349 U/L (0-35); AST (SGOT) 122 U/L (14-36); Albumin 2.9 g/dl (3.5-5.0); Alkaline Phosphatase 85 U/L (38-126); Blood Urea Nitrogen 6 mg/dl (7-17); Calcium 8.5 mg/dl (8.4-10.2); Carbon Dioxide 27 mmol/L (22-30); Chloride 102 mmol/L (98-107); Estimated Creatinine Clearance 66 ml/min; Glucose 121 mg/dl (70-99); Potassium 3.4 mmol/L (3.5-5.1); Sodium 136 mmol/L (135-145); Total Bilirubin 0.4 mg/dl (0.2-1.3); Total Protein 5.1 g/dl (6.3-8.2); eGFR > 60.00
[2023-08-23 07:27] LABS: Hepatitis B Surface Antigen Negative (Negative)
[2023-08-23 07:30] VITALS: BP 126/65
[2023-08-23 07:33] LABS: Hepatitis A IgM Antibody Negative (Negative); Hepatitis B Core Ab, IgM Negative (Negative)
[2023-08-23 07:44] LABS: Hepatitis B Core Ab, Total Negative (Negative); Hepatitis B Surface Antibody Negative; Hepatitis C Antibody Negative (Negative)
[2023-08-23 07:52] LABS: Hepatitis A Antibody, Total Negative (Negative)
[2023-08-23] MEDS: CALAN EXTENDED RELEASE 180 MG PO ×2 (08:55→19:50)
[2023-08-23] MEDS: ZESTRIL 10 MG PO (08:55)
[2023-08-23] MEDS: LANOXIN 250 MCG PO (08:55)
[2023-08-23] MEDS: KCL 40 MEQ PO (10:50)
[2023-08-23 11:14] LABS: Iron 43 ug/dl (37-170)
[2023-08-23 11:23] LABS: Percent Saturation 15 % (20-50); Total Iron Binding Capacity 276 ug/dl (265-497)
--- NOTE | 2023-08-23 11:35 | W.PN.HOSP.TC ---
Today's Communication/Plan
-
Await stools
?Advance diet
follow LFts
Assessment / Plan
Assessment / Plan
73-year-old female with diarrhea for the past 2 and half weeks. Patient stated that she had some postnasal drip and some URI symptoms 2 and half weeks ago. She states that it is normal for her to have loose stools when she has a URI and postnasal
drip. She stated that it got better but it came back. Has some cramps but no real pain. No recent antibiotic use or travel. She lives with her he does not have any symptoms like this. No history of inflammatory bowel disease
On examination awake alert oriented
Cardiovascular system S1-S2 appreciated
Abdomen slightly distended, nontender
No edema
Neuro nonfocal
# Severe pancolitis with bloody diarrhea
C. difficile negative, norovirus negative
Repeat cultures pending cultures from 08/15/2023 negative
Yersinia and also Giardia-added on
Stool for WBC
Continue antibiotics
GI evaluation
If no answers with the stools may need flex sig to rule out microscopic colitis or IBD
Patient is on 33 different vtgj-zmg-aplnkeo supplements
Unclear if some of this can cause her symptoms
Colonoscopy 2019-nonbleeding internal hemorrhoids, 6 mm polyp in the transverse colon
Clears
# Transaminitis
Patient is on 33 different otev-hik-meegeco supplements
Hepatitis serologies neg
Imaging of Liver and gallbladder unremarkable as per CT
Getting better
? Viral
# Hypertension continue lisinopril
# Hypokalemia-replace
# History of SVTs-continue verapamil, Digoxin
Normal Dig Level.
#Anemia- Check Iron and B12
# DVT prophylaxis-SCDs given bloody bowel movements
# Full code
Discussed with nursing
Anticipated Discharge: 24 - 48 hours
Subjective/Interval History
-
Date of Service: August 23, 2023
Objective Data
-
Labs:
Laboratory Results
08/23/23
05:41
WBC 7.7
Hgb 10.9 L
Hct 32.3 L
Plt Count 289
PT 15.0 H
INR 1.18
Sodium 136
Potassium 3.4 L
Chloride 102
Carbon Dioxide 27
BUN 6 L
Creatinine 0.6
Glucose 121 H
Calcium 8.5
Total Bilirubin 0.4
AST 122 H
ALT 349 H
Alkaline Phosphatase 85
Vital Signs:
Vital Signs
Temp Pulse Resp BP Pulse Ox
98.1 F 70 18 126/65 98
08/23/23 07:30 08/23/23 08:55 08/23/23 07:30 08/23/23 08:55 08/23/23 07:30
I&O
08/22/23 08/23/23 08/24/23
06:59 06:59 06:59
Intake Total 1410 / 1410 2115
Balance 1410 / 1410 2115
[2023-08-23 11:50] LABS: Ferritin 89.2 ng/ml (11.1-264.0)
--- NOTE | 2023-08-23 11:52 | W.PN.GI.CBS2 ---
Today's Communication / Plan
-
Pt now agreeable to colonoscopy. Schedule for tomorrow
LFTs trending down. Hep A IgM negative
Stool studies continue to be negative
R/O IBD on colonoscop/bx
Assessment / Plan
-
73-year-old female with past medical history Lyme disease, SVT, hypertension, hyperlipidemia, osteopenia as well as adenoma 2018 presents the emergency room with almost 3-week history of diarrhea followed by bloody diarrhea. Asked to evaluate for
the same. Patient states that over the past 4 to 5 weeks she has noticed that her stools have become softer. She states that intermittently when she has postnasal drip she notices that her stools become on the soft side and she notices that she
also has mucus coating those bowel movements as well. She states this has been ongoing for years. She states that over the past 3 weeks following that initial 5 weeks her stools became progressively soft to then loose and diarrhea-like. Over the
past 3 weeks she has had diarrhea-like stools that were then watery and then over the past week has had intermittent episodes of blood mixed within her stools. Laboratory data shows WBC 7.8, hemoglobin 12.7, hematocrit 37.6, platelet count 327
Sodium 135, potassium 3.5, BUN 10, creatinine 0.6, total bilirubin 0.6, AST of 253 down from 296, ALT of 519, down from 613, alk phos 105, CRP of 39.7, lipase 91. Outpatient stool studies performed on 08/15/23 were negative for C. difficile,Negative
for Salmonella/Shigella, negative for Campylobacter and negative for E. coli/Shigella.Currently we are pending repeats as well as stool for crypto, WBC and giardia. Acute Hepatitis panel was also ordered given transaminitis. Patient has not been
hypotensive here and denies any issues of near syncope at home. Prior LFTs have been normal in the past. Patient has been off of her OTC supplements for a couple weeks.
Impression:
Diarrhea, slow onset over a couple weeks
Pancolitis on CT
Transaminitis
Subjective
Subjective
Date of Service: August 23, 2023
Still having diarrhea, blood tinged.
Objective
Data Reviewed
Laboratory Data:
Laboratory Results
08/23/23 05:41
08/23/23 05:41
Laboratory Results
PT 15.0 Sec (11.4-14.6) H 08/23/23 05:41
INR 1.18 08/23/23 05:41
Magnesium 2.0 mg/dl (1.6-2.3) 08/23/23 05:41
Total Bilirubin 0.4 mg/dl (0.2-1.3) 08/23/23 05:41
AST 122 U/L (14-36) H 08/23/23 05:41
ALT 349 U/L (0-35) H 08/23/23 05:41
Alkaline Phosphatase 85 U/L (38-126) 08/23/23 05:41
Lipase 91 U/L (23-300) 08/21/23 14:45
Vital Signs and I&O:
Vital Signs
Temp Pulse Resp BP Pulse Ox
98.1 F 70 18 126/65 98
08/23/23 07:30 08/23/23 08:55 08/23/23 07:30 08/23/23 08:55 08/23/23 07:30
I&O
08/22/23 08/23/23 08/24/23
06:59 06:59 06:59
Intake Total 1410 / 1410 2115
Balance 1410 / 1410 2115
Physical Exam
Physical Exam
GI: Soft, Non Distended and Non Tender
[2023-08-23 12:05] LABS: Vitamin B12 925 pg/ml (239-931)
[2023-08-23 14:36] VITALS: BMI 24.5
[2023-08-23 15:32] VITALS: BP 131/71
--- NOTE | 2023-08-23 16:04 | CM ---
Colonoscopy on 08/24/23. Discharge Plan of Care: Anticipate no needs.
[2023-08-23] MEDS: NULYTELY SOLUTION 4 LITERS PO (17:20)
[2023-08-23] MEDS: ZYRTEC 10 MG PO (21:47)
[2023-08-23] MEDS: ZESTRIL 20 MG PO (21:51)
[2023-08-23] MEDS: MELATONIN 5 MG PO (22:48)
[2023-08-23 23:30] VITALS: BP 129/60
[2023-08-24] MEDS: ZOSYN 50 IV ×4 (04:16→22:07)
[2023-08-24 04:26] VITALS: BMI 24.3
[2023-08-24 07:03] VITALS: BP 127/70
[2023-08-24 07:46] LABS: Hematocrit 34.9 % (37.0-47.0); Hemoglobin 11.4 g/dL (12.0-16.0); Mean Corp Hgb Conc. 32.7 g/dL (33.0-37.0); Mean Corpuscular Hgb 28.4 pg (27.0-31.0); Mean Corpuscular Volume 86.8 fL (81.0-99.0); Mean Platelet Volume 9.6 fL (7.4-10.4); Platelet Count 300 10^3/uL (130-400); Red Blood Cell Count 4.02 10^6/uL (4.20-5.40); Red Cell Dist. Width 12.5 % (11.5-14.5); White Blood Cell Count 6.3 10^3/uL (4.8-10.8)
[2023-08-24] MEDS: LANOXIN 250 MCG PO (07:54)
[2023-08-24] MEDS: CALAN EXTENDED RELEASE 180 MG PO ×2 (07:55→20:16)
[2023-08-24] MEDS: ZESTRIL 10 MG PO (07:56)
[2023-08-24 08:25] LABS: ALT (SGPT) 356 U/L (0-35); AST (SGOT) 162 U/L (14-36); Albumin 3.3 g/dl (3.5-5.0); Alkaline Phosphatase 96 U/L (38-126); Blood Urea Nitrogen 2 mg/dl (7-17); Calcium 8.5 mg/dl (8.4-10.2); Carbon Dioxide 25 mmol/L (22-30); Chloride 107 mmol/L (98-107); Estimated Creatinine Clearance 66 ml/min; Glucose 99 mg/dl (70-99); Sodium 135 mmol/L (135-145); Total Bilirubin 0.4 mg/dl (0.2-1.3); Total Protein 5.6 g/dl (6.3-8.2); eGFR > 60.00
[2023-08-24 12:15] VITALS: BP 118/59
--- NOTE | 2023-08-24 12:38 | W.PN.HOSP.TC ---
Today's Communication/Plan
-
AB
Await Path
Assessment / Plan
Assessment / Plan
73-year-old female with diarrhea for the past 2 and half weeks. Patient stated that she had some postnasal drip and some URI symptoms 2 and half weeks ago. She states that it is normal for her to have loose stools when she has a URI and postnasal
drip. She stated that it got better but it came back. Has some cramps but no real pain. No recent antibiotic use or travel. She lives with her he does not have any symptoms like this. No history of inflammatory bowel disease
On examination awake alert oriented
Cardiovascular system S1-S2 appreciated
Abdomen slightly distended, nontender
No edema
Neuro nonfocal
Seen earlier prior to colonoscopy. Late documentation
# Severe pancolitis with bloody diarrhea
C. difficile negative, norovirus negative
Repeat cultures pending cultures from 08/15/2023 negative
Yersinia says reslted- cant see
Giardia neg
No bloody stools now
Continue antibiotics
Patient is on 33 different pegc-xbh-inwxmln supplements-Unclear if some of this can cause her symptoms
Colonoscopy 2019-nonbleeding internal hemorrhoids, 6 mm polyp in the transverse colon
Colonoscopy 08/24/2023-procedure was aborted in the ascending colon due to looping and significant colitis. Patchy moderate inflammation in the sigmoid colon, descending colon at the splenic flexure and in the transverse colon and in the ascending
colon. Deep ulcers in the splenic flexure sigmoid erythema throughout the colon rectal sparing. 10 mm polyp removed. Diverticulosis in the sigmoid colon.
Await pathology
Continue antibiotics
# Transaminitis
Patient is on 33 different uvry-soh-hnudsxi supplements
Hepatitis serologies neg
Imaging of Liver and gallbladder unremarkable as per CT
Getting better
? Viral
# Hypertension continue lisinopril
# Hypokalemia-replace
# History of SVTs-continue verapamil, Digoxin
Normal Dig Level.
#Anemia- Check Iron and B12
# DVT prophylaxis-SCDs given bloody bowel movements
# Full code
Discussed with nursing
Anticipated Discharge: > 48 hours
Subjective/Interval History
-
Date of Service: August 24, 2023
Objective Data
-
Labs:
Laboratory Results
08/24/23
06:52
WBC 6.3
Hgb 11.4 L
Hct 34.9 L
Plt Count 300
Sodium 135
Potassium 4.0
Chloride 107
Carbon Dioxide 25
BUN 2 L
Creatinine 0.5 L
Glucose 99
Calcium 8.5
Total Bilirubin 0.4
AST 162 H
ALT 356 H
Alkaline Phosphatase 96
Vital Signs:
Vital Signs
Temp Pulse Resp BP Pulse Ox
97.8 F 73 16 118/59 98
08/24/23 12:15 08/24/23 12:15 08/24/23 12:15 08/24/23 12:15 08/24/23 12:15
I&O
08/23/23 08/24/23 08/25/23
06:59 06:59 06:59
Intake Total 2115 3850 / 3850
Balance 2115 3850 / 3850
[2023-08-24 15:03] VITALS: BP 129/59
[2023-08-24] MEDS: MELATONIN 5 MG PO (22:06)
[2023-08-24] MEDS: ZESTRIL 20 MG PO (22:06)
[2023-08-24] MEDS: ZYRTEC 10 MG PO (22:07)
[2023-08-24 23:08] VITALS: BP 126/57
[2023-08-25] MEDS: ZOSYN 50 IV ×2 (05:00→11:00)
[2023-08-25 05:46] VITALS: BMI 23.9
[2023-08-25 06:00] VITALS: BMI 23.9
[2023-08-25 07:45] VITALS: BP 126/59
[2023-08-25 07:59] LABS: Hematocrit 35.7 % (37.0-47.0); Hemoglobin 11.6 g/dL (12.0-16.0); Mean Corp Hgb Conc. 32.5 g/dL (33.0-37.0); Mean Corpuscular Hgb 28.3 pg (27.0-31.0); Mean Corpuscular Volume 87.1 fL (81.0-99.0); Mean Platelet Volume 9.6 fL (7.4-10.4); Platelet Count 334 10^3/uL (130-400); Red Cell Dist. Width 12.6 % (11.5-14.5); White Blood Cell Count 5.6 10^3/uL (4.8-10.8)
[2023-08-25] MEDS: ZESTRIL 10 MG PO (08:03)
[2023-08-25] MEDS: LANOXIN 250 MCG PO (08:03)
[2023-08-25] MEDS: CALAN EXTENDED RELEASE 180 MG PO (08:03)
[2023-08-25 08:47] LABS: ALT (SGPT) 350 U/L (0-35); AST (SGOT) 174 U/L (14-36); Albumin 3.2 g/dl (3.5-5.0); Alkaline Phosphatase 90 U/L (38-126); Blood Urea Nitrogen 11 mg/dl (7-17); Carbon Dioxide 27 mmol/L (22-30); Chloride 101 mmol/L (98-107); Estimated Creatinine Clearance 66 ml/min; Glucose 95 mg/dl (70-99); Magnesium 2.1 mg/dl (1.6-2.3); Potassium 3.9 mmol/L (3.5-5.1); Sodium 138 mmol/L (135-145); Total Bilirubin 0.3 mg/dl (0.2-1.3); Total Protein 5.6 g/dl (6.3-8.2); eGFR > 60.00
--- NOTE | 2023-08-25 10:14 | W.PN.HOSP.TC ---
Addendum entered and electronically signed by Antony Santizo MD 08/25/23 15:05:
Discussed with GI. Okay for discharge
Offered to talk to patient's family, she declined and stated that her was informed by her of what is going on. She is aware that he can reach me if he has questions.
Patient is aware that she needs to get further treatment after biopsy is back.
Discharged with Augmentin For 1 more week.
Script for labs given
Discharge time 32 minutes
Original Note:
Today's Communication/Plan
-
Await GI rounds to decide the plan
Assessment / Plan
Assessment / Plan
73-year-old female with diarrhea for the past 2 and half weeks. Patient stated that she had some postnasal drip and some URI symptoms 2 and half weeks ago. She states that it is normal for her to have loose stools when she has a URI and postnasal
drip. She stated that it got better but it came back. Has some cramps but no real pain. No recent antibiotic use or travel. She lives with her he does not have any symptoms like this. No history of inflammatory bowel disease
On examination awake alert oriented
Cardiovascular system S1-S2 appreciated
Abdomen slightly distended, nontender
No edema
Neuro nonfocal
Tolerating diet
# Severe pancolitis with bloody diarrhea
C. difficile negative, norovirus negative
Repeat cultures pending cultures from 08/15/2023 negative
Yersinia says resulted- cant see results
Giardia neg
No bloody stools now
Continue antibiotics
Patient is on 33 different wvgr-wrf-cgqwuel supplements-Unclear if some of this can cause her symptoms
Colonoscopy 2018-nonbleeding internal hemorrhoids, 6 mm polyp in the transverse colon
Colonoscopy 08/24/2023-procedure was aborted in the ascending colon due to looping and significant colitis. Patchy moderate inflammation in the sigmoid colon, descending colon at the splenic flexure and in the transverse colon and in the ascending
colon. Deep ulcers in the splenic flexure sigmoid erythema throughout the colon rectal sparing. 10 mm polyp removed. Diverticulosis in the sigmoid colon.
Await pathology
Continue antibiotics
# Transaminitis
Patient is on 33 different qcmt-ojm-xvquqfw supplements
Hepatitis serologies neg
Imaging of Liver and gallbladder unremarkable as per CT
Getting better- slowly
? Viral
# Fluid retention- One dose of Ethacrynate
Likely from IVF
# Hypertension continue lisinopril
# Hypokalemia-replaced
# History of SVTs-continue verapamil, Digoxin
Normal Dig Level.
# Anemia- Check Iron and B12
# DVT prophylaxis-SCDs given bloody bowel movements
She has been ambulating well.
# Full code
Discussed with nursing
Anticipated Discharge: Within 24 hours
Subjective/Interval History
-
Date of Service: August 25, 2023
Objective Data
-
Labs:
Laboratory Results
08/25/23
06:53
WBC 5.6
Hgb 11.6 L
Hct 35.7 L
Plt Count 334
Sodium 138
Potassium 3.9
Chloride 101
Carbon Dioxide 27
BUN 11
Creatinine 0.6
Glucose 95
Calcium 9.0
Total Bilirubin 0.3
AST 174 H
ALT 350 H
Alkaline Phosphatase 90
Vital Signs:
Vital Signs
Temp Pulse Resp BP Pulse Ox
98.3 F 60 16 126/59 96
08/25/23 07:45 08/25/23 08:03 08/25/23 07:45 08/25/23 08:03 08/25/23 07:45
I&O
08/24/23 08/25/23 08/26/23
06:59 06:59 06:59
Intake Total 3850 / 3850 1580 / 1580
Balance 3850 / 3850 158 / 158
[2023-08-25 10:59] VITALS: BP 118/62
[2023-08-25] MEDS: KCL 20 MEQ PO (11:02)
[2023-08-25] MEDS: EDECRIN 25 MG PO (11:02)
--- NOTE | 2023-08-25 14:48 | W.PN.GI.CBS2 ---
Today's Communication / Plan
-
OK for d/c
We will follow up on path as outpt
F/U with Dr Galicia in the office
D/c on abx- augmentin OK
Assessment / Plan
-
73-year-old female with past medical history Lyme disease, SVT, hypertension, hyperlipidemia, osteopenia as well as adenoma 2018 presents the emergency room with almost 3-week history of diarrhea followed by bloody diarrhea. Asked to evaluate for
the same. Patient states that over the past 4 to 5 weeks she has noticed that her stools have become softer. She states that intermittently when she has postnasal drip she notices that her stools become on the soft side and she notices that she
also has mucus coating those bowel movements as well. She states this has been ongoing for years. She states that over the past 3 weeks following that initial 5 weeks her stools became progressively soft to then loose and diarrhea-like. Over the
past 3 weeks she has had diarrhea-like stools that were then watery and then over the past week has had intermittent episodes of blood mixed within her stools. Laboratory data shows WBC 7.8, hemoglobin 12.7, hematocrit 37.6, platelet count 327
Sodium 135, potassium 3.5, BUN 10, creatinine 0.6, total bilirubin 0.6, AST of 253 down from 296, ALT of 519, down from 613, alk phos 105, CRP of 39.7, lipase 91. Outpatient stool studies performed on 08/15/23 were negative for C. difficile,Negative
for Salmonella/Shigella, negative for Campylobacter and negative for E. coli/Shigella.Currently we are pending repeats as well as stool for crypto, WBC and giardia. Acute Hepatitis panel was also ordered given transaminitis. Patient has not been
hypotensive here and denies any issues of near syncope at home. Prior LFTs have been normal in the past. Patient has been off of her OTC supplements for a couple weeks.
Impression:
Diarrhea, slow onset over a couple weeks
Pancolitis on CT
Transaminitis
Subjective
Subjective
Date of Service: August 25, 2023
Feeling better. No diarrhea, no BM today. No further bleeding. Abd pain improved
Objective
Data Reviewed
Laboratory Data:
Laboratory Results
08/25/23 06:53
08/25/23 06:53
Laboratory Results
PT 15.0 Sec (11.4-14.6) H 08/23/23 05:41
INR 1.18 08/23/23 05:41
Magnesium 2.1 mg/dl (1.6-2.3) 08/25/23 06:53
Total Bilirubin 0.3 mg/dl (0.2-1.3) 08/25/23 06:53
AST 174 U/L (14-36) H 08/25/23 06:53
ALT 350 U/L (0-35) H 08/25/23 06:53
Alkaline Phosphatase 90 U/L (38-126) 08/25/23 06:53
Lipase 91 U/L (23-300) 08/21/23 14:45
Vital Signs and I&O:
Vital Signs
Temp Pulse Resp BP Pulse Ox
98.3 F 61 16 118/62 96
08/25/23 07:45 08/25/23 11:02 08/25/23 07:45 08/25/23 11:02 08/25/23 07:45
I&O
08/24/23 08/25/23 08/26/23
06:59 06:59 06:59
Intake Total 3850 / 3850 1580 / 1580
Balance 3850 / 3850 1580 / 1580
Physical Exam
Physical Exam
GI: Soft, Non Distended and Non Tender
[2023-08-25 14:56] VITALS: BP 128/71
--- NOTE | 2023-08-25 15:11 | W.DS.TRANS ---
Addendum entered and electronically signed by Antony Santizo MD 08/25/23 16:55:
Dictation- [id number]
Original Note:
DC Summary - Attorney General
-
Discharge Instructions:
Discharge Diagnosis/Procedures Pancolitis, elevated liver tests, history of
SVTs, hypertension,
Diet Low Residue
Activity As tolerated
Driving Restrictions As prior to admission
Instructions:
Stand-Alone Forms:
Changes to Home Medications: Yes
Discharge Medications:
DC Medications w/original date entered in [facility]
amoxicillin 875 mg-potassium clavulanate 125 mg tablet 1 tab PO BID colitis #14 tabs 08/25/23
cetirizine 10 mg tablet 10 mg PO HS Allergies #0 tabs 08/25/23
digoxin 250 mcg (0.25 mg) tablet 250 mcg PO DAILY Arrhythmia #0 tabs 08/25/23
lisinopril 10 mg tablet 10 mg PO DAILY Blood pressure #0 tabs 08/25/23
lisinopril 10 mg tablet 20 mg PO HS Blood pressure #0 tabs 08/25/23
verapamil 180 mg 24 hr capsule,extended release 180 mg PO BID Arrhythmia #0 caps 08/25/23
Home Medication Changes
Augmentin new
Stopped all OTC meds
Pending Results: Yes
Additional Pending Results:
colonoscopy Bx
--- NOTE | 2023-08-25 15:38 | CM ---
Patient seen at bedside with present. IMM completed and signed form placed on chart. Patient requested medication go to [facility] as [facility] was closed and physician updated. Patient with no other needs at this time. CM will continue to
follow for discharge planning needs.
Plan; home with no needs
== END 2023-08-25 15:58 | disposition home or self-care (01) | DRG 392 ==
LOC: 2 NORTH 20:24
PROVIDERS: Nurse Practitioner; Specialist; ADMITTING PHYSICIAN Hospitalist; ATTENDING PHYSICIAN Hospitalist; CONSULT PHYSICIAN Internal Medicine; EMERGENCY PHYSICIAN Emergency Medicine; FAMILY PHYSICIAN Family Medicine
PROC: 0DBL8ZX Excision of Transverse Colon, Via Natural or Artificial Opening Endoscopic, Diagnostic (ICD-10-PCS; 2023-08-24)
DX: K52.9 Noninfective gastroenteritis and colitis, unspecified (principal); R18.8 Other ascites; K63.3 Ulcer of intestine; I47.10 Supraventricular tachycardia, unspecified; I10 Essential (primary) hypertension; E78.00 Pure hypercholesterolemia, unspecified; D12.3 Benign neoplasm of transverse colon; K57.30 Diverticulosis of large intestine without perforation or abscess without bleeding; E87.6 Hypokalemia; K64.8 Other hemorrhoids
CPT/HCPCS: 88305; 74177; 80053; 80162; 82248; 82607; 82728; 83540; 83550; 83690; 83735; 85025; 85027; 85610; 85652; 86140; 86704; 86705; 86706; 86708; 86709; 86803; 87045; 87046; 87324; 87328; 87329; 87340; 87427; 87449; 87798; 88342; 89055; 96365; 99285; J3480; Q9967

== ENCOUNTER → 2023-09-02 11:13 | Outpatient (REF) | payer MEDICARE, OTHER, SELFPAY ==
[2023-09-02 12:59] LABS: ALT (SGPT) 327 U/L (0-35); AST (SGOT) 110 U/L (14-36); Albumin 4.3 g/dl (3.5-5.0); Alkaline Phosphatase 82 U/L (38-126); Blood Urea Nitrogen 27 mg/dl (7-17); Calcium 9.9 mg/dl (8.4-10.2); Carbon Dioxide 30 mmol/L (22-30); Chloride 97 mmol/L (98-107); Glucose 91 mg/dl (70-99); Potassium 4.3 mmol/L (3.5-5.1); Sodium 137 mmol/L (135-145); Total Bilirubin 0.2 mg/dl (0.2-1.3); Total Protein 6.9 g/dl (6.3-8.2); eGFR > 60.00
== END ==
LOC: REG 11:13
PROVIDERS: ATTENDING PHYSICIAN Hospitalist; FAMILY PHYSICIAN Family Medicine; REFERRING PHYSICIAN Internal Medicine Gastroenterology
DX: K62.5 Hemorrhage of anus and rectum (principal)
CPT/HCPCS: 36415; 80053

== ENCOUNTER → 2023-10-04 10:35 | Outpatient (REF) | payer MEDICARE, OTHER, SELFPAY | LOC: REG 10:35 | PROVIDERS: ATTENDING PHYSICIAN Specialist; FAMILY PHYSICIAN Family Medicine | DX: K55.9 Vascular disorder of intestine, unspecified (principal) | CPT/HCPCS: 87324; 87449 ==

== ENCOUNTER → 2023-10-24 07:43 | Outpatient (REF) | payer MEDICARE, OTHER, SELFPAY | LOC: MRI 07:43 | PROVIDERS: ATTENDING PHYSICIAN Specialist; FAMILY PHYSICIAN Family Medicine | DX: K55.9 Vascular disorder of intestine, unspecified (principal); R93.5 Abnormal findings on diagnostic imaging of other abdominal regions, including retroperitoneum | CPT/HCPCS: 74185; A9585 ==

== ENCOUNTER → 2023-11-02 07:41 | Outpatient (REF) | payer MEDICARE, OTHER, SELFPAY ==
[2023-11-02 08:54] LABS: ALT (SGPT) 105 U/L (0-35); AST (SGOT) 70 U/L (14-36); Albumin 4.3 g/dl (3.5-5.0); Alkaline Phosphatase 68 U/L (38-126); Blood Urea Nitrogen 18 mg/dl (7-17); Calcium 9.8 mg/dl (8.4-10.2); Carbon Dioxide 27 mmol/L (22-30); Chloride 104 mmol/L (98-107); Glucose 104 mg/dl (70-99); HDL Cholesterol 74 mg/dl; LDL Cholesterol, Calculated 126 mg/dl; Sodium 139 mmol/L (135-145); Total Bilirubin 0.4 mg/dl (0.2-1.3); Total Cholesterol 219 mg/dl (50-199); Total Protein 6.8 g/dl (6.3-8.2); Triglyceride 96 mg/dl (10-149); Very Low Density Lipoprotein 19 mg/dl (0-30); eGFR > 60.00
[2023-11-02 09:04] LABS: Glycohemoglobin (HgbA1c) 5.6 % (4.0-5.6)
== END ==
LOC: REG 07:41
PROVIDERS: ATTENDING PHYSICIAN Family Medicine
DX: I10 Essential (primary) hypertension (principal); E78.2 Mixed hyperlipidemia; R73.01 Impaired fasting glucose
CPT/HCPCS: 36415; 80053; 80061; 83036

== ENCOUNTER → 2023-11-21 12:44 | Outpatient (REF) | payer MEDICARE, OTHER, SELFPAY | LOC: RCS 12:44 | PROVIDERS: ATTENDING PHYSICIAN Internal Medicine Cardiovascular Disease; FAMILY PHYSICIAN Family Medicine | DX: I47.10 Supraventricular tachycardia, unspecified (principal) | CPT/HCPCS: 93306 ==

== ENCOUNTER → 2024-01-01 15:59 | Outpatient (REF) | payer MEDICARE, OTHER, SELFPAY ==
[2024-01-01 17:18] LABS: ALT (SGPT) 33 U/L (0-35); AST (SGOT) 27 U/L (14-36); Albumin 4.3 g/dl (3.5-5.0); Alkaline Phosphatase 70 U/L (38-126); Blood Urea Nitrogen 20 mg/dl (7-17); Calcium 9.5 mg/dl (8.4-10.2); Carbon Dioxide 28 mmol/L (22-30); Chloride 100 mmol/L (98-107); Glucose 148 mg/dl (70-99); Potassium 4.4 mmol/L (3.5-5.1); Sodium 136 mmol/L (135-145); Total Bilirubin 0.3 mg/dl (0.2-1.3); Total Protein 6.4 g/dl (6.3-8.2)
[2024-01-01 17:28] LABS: eGFR 33.84
== END ==
LOC: REG 15:59
PROVIDERS: ATTENDING PHYSICIAN Family Medicine
DX: R74.8 Abnormal levels of other serum enzymes (principal)
CPT/HCPCS: 36415; 80053

== ENCOUNTER → 2024-01-09 10:45 | Outpatient (REF) | payer MEDICARE, OTHER, SELFPAY ==
[2024-01-09 12:33] LABS: ALT (SGPT) 32 U/L (0-35); AST (SGOT) 27 U/L (14-36); Albumin 4.4 g/dl (3.5-5.0); Alkaline Phosphatase 76 U/L (38-126); Blood Urea Nitrogen 19 mg/dl (7-17); Calcium 9.4 mg/dl (8.4-10.2); Carbon Dioxide 27 mmol/L (22-30); Chloride 103 mmol/L (98-107); Digoxin 0.6 ng/ml (0.8-2.0); Glucose 98 mg/dl (70-99); Sodium 136 mmol/L (135-145); Total Bilirubin 0.3 mg/dl (0.2-1.3); Total Protein 6.5 g/dl (6.3-8.2); eGFR > 60.00
== END ==
LOC: REG 10:45
PROVIDERS: ATTENDING PHYSICIAN Family Medicine
DX: N17.9 Acute kidney failure, unspecified (principal); I47.10 Supraventricular tachycardia, unspecified
CPT/HCPCS: 36415; 80053; 80162

== ENCOUNTER → 2024-03-19 08:35 | Outpatient (REF) | payer MEDICARE, OTHER, SELFPAY ==
[2024-03-19 10:30] LABS: ALT (SGPT) 33 U/L (0-35); AST (SGOT) 28 U/L (14-36); Albumin 4.3 g/dl (3.5-5.0); Alkaline Phosphatase 67 U/L (38-126); Blood Urea Nitrogen 21 mg/dl (7-17); Calcium 9.2 mg/dl (8.4-10.2); Carbon Dioxide 27 mmol/L (22-30); Chloride 105 mmol/L (98-107); Glucose 111 mg/dl (70-99); HDL Cholesterol 73 mg/dl; LDL Cholesterol, Calculated 116 mg/dl; Potassium 4.9 mmol/L (3.5-5.1); Sodium 139 mmol/L (135-145); Total Bilirubin 0.1 mg/dl (0.2-1.3); Total Cholesterol 202 mg/dl (50-199); Total Protein 6.5 g/dl (6.3-8.2); Triglyceride 68 mg/dl (10-149); Very Low Density Lipoprotein 13 mg/dl (0-30); eGFR > 60.00
== END ==
LOC: REG 08:35
PROVIDERS: ATTENDING PHYSICIAN Family Medicine
DX: E78.2 Mixed hyperlipidemia (principal); R73.01 Impaired fasting glucose
CPT/HCPCS: 36415; 80053; 80061

== ENCOUNTER → 2024-09-19 07:53 | Outpatient (REF) | payer MEDICARE, OTHER, SELFPAY ==
[2024-09-19 09:40] LABS: ALT (SGPT) 24 U/L (0-35); AST (SGOT) 23 U/L (14-36); Alkaline Phosphatase 86 U/L (38-126); Blood Urea Nitrogen 21 mg/dl (7-17); Calcium 8.7 mg/dl (8.4-10.2); Carbon Dioxide 24 mmol/L (22-30); Chloride 107 mmol/L (98-107); Glucose 129 mg/dl (70-99); HDL Cholesterol 42 mg/dl; LDL Cholesterol, Calculated 60 mg/dl; Potassium 4.1 mmol/L (3.5-5.1); Sodium 139 mmol/L (135-145); Total Bilirubin 0.4 mg/dl (0.2-1.3); Total Cholesterol 120 mg/dl (50-199); Triglyceride 94 mg/dl (10-149); Very Low Density Lipoprotein 18 mg/dl (0-30); eGFR > 60.00
[2024-09-19 11:40] LABS: Glycohemoglobin (HgbA1c) 5.2 % (4.0-5.6)
== END ==
LOC: REG 07:53
PROVIDERS: ATTENDING PHYSICIAN Family Medicine
DX: I10 Essential (primary) hypertension (principal); E78.2 Mixed hyperlipidemia; R73.01 Impaired fasting glucose
CPT/HCPCS: 36415; 80053; 80061; 83036

== ENCOUNTER → 2024-09-23 13:26 | Outpatient (REF) | payer MEDICARE, OTHER, SELFPAY ==
[2024-09-23 15:14] LABS: Hemoglobin 4.1 g/dL (12.0-16.0); Mean Corp Hgb Conc. 25.6 g/dL (33.0-37.0); Mean Corpuscular Hgb 15.1 pg (27.0-31.0); Mean Platelet Volume 9.8 fL (7.4-10.4); Platelet Count 350 10^3/uL (130-400); Red Blood Cell Count 2.71 10^6/uL (4.20-5.40); Red Cell Dist. Width 20.7 % (11.5-14.5); White Blood Cell Count 6.4 10^3/uL (4.8-10.8)
[2024-09-23 15:52] LABS: % Basophils 0.3 % (0-2); % Eosinophils 1.6 % (0-6); % Immature Granulocytes 0.2 % (0-0.5); % Lymphocytes 28.2 % (20.5-51.1); % Monocytes 10.3 % (1.7-9.3); % Neutrophils 59.4 % (42.2-75.2); Absolute Eosinophils 0.1 10^3/uL (0-0.7); Absolute Lymphocytes 1.8 10^3/uL (1.2-3.4); Absolute Monocytes 0.7 10^3/uL (0.1-0.6); Absolute Neutrophils 3.8 10^3/uL (1.4-6.5); Anisocytosis 1+; Hypochromasia 4+; Macrocytosis 1+; Normal RBC Morphology No; Nucleated Red Blood Cells % 0 %
[2024-09-23 15:53] LABS: Ovalocytes 1+
[2024-09-23 16:45] LABS: TSH 2.61 uIU/ml (0.47-4.68)
[2024-09-28 01:55] LABS: Albumin 3.54 g/dL (3.75-5.01); Alpha 1 Globulin 0.35 g/dL (0.19-0.46); Alpha 2 Globulin 0.55 g/dL (0.48-1.05); SPEP IFE Reflex IFE Done; Total Protein-Electrophoresis 5.8 g/dL (6.3-8.2)
[2024-09-28 06:45] LABS: IgA 105 mg/dL (68-408); IgG 602 mg/dL (768-1632); IgM 93 mg/dL (35-263)
== END ==
LOC: REG 13:26
PROVIDERS: ATTENDING PHYSICIAN Family Medicine
DX: R53.83 Other fatigue (principal); E77.8 Other disorders of glycoprotein metabolism
CPT/HCPCS: 36415; 82784; 84155; 84165; 84439; 84443; 85025; 86334

== ENCOUNTER 2024-09-23 19:07 | Inpatient (IN) | payer MEDICARE, OTHER, SELFPAY ==
[2024-09-23] VITALS (12 sets, daily range): BP systolic 143–172; BP diastolic 59–81; BMI 25.6
[2024-09-23 16:48] LABS: % Basophils 1.1 % (0-2); % Eosinophils 1.5 % (0-6); % Immature Granulocytes 0.4 % (0-0.5); % Lymphocytes 28.8 % (20.5-51.1); % Monocytes 7.3 % (1.7-9.3); % Neutrophils 60.9 % (42.2-75.2); Absolute Basophils 0.1 10^3/uL (0-0.2); Absolute Eosinophils 0.1 10^3/uL (0-0.7); Absolute Lymphocytes 2.1 10^3/uL (1.2-3.4); Absolute Monocytes 0.5 10^3/uL (0.1-0.6); Absolute Neutrophils 4.4 10^3/uL (1.4-6.5); Hematocrit 16.1 % (37.0-47.0); Hemoglobin 4.1 g/dL (12.0-16.0); Mean Corp Hgb Conc. 25.5 g/dL (33.0-37.0); Mean Corpuscular Hgb 15.1 pg (27.0-31.0); Mean Corpuscular Volume 59.4 fL (81.0-99.0); Mean Platelet Volume 9.8 fL (7.4-10.4); Nucleated Red Blood Cells % 0 %; Platelet Count 357 10^3/uL (130-400); Red Blood Cell Count 2.71 10^6/uL (4.20-5.40); Red Cell Dist. Width 20.2 % (11.5-14.5); White Blood Cell Count 7.2 10^3/uL (4.8-10.8)
[2024-09-23 16:56] LABS: ALT (SGPT) 26 U/L (0-35); AST (SGOT) 24 U/L (14-36); Albumin 3.7 g/dl (3.5-5.0); Alkaline Phosphatase 79 U/L (38-126); Blood Urea Nitrogen 23 mg/dl (7-17); Carbon Dioxide 23 mmol/L (22-30); Glucose 153 mg/dl (70-99); Total Bilirubin 0.3 mg/dl (0.2-1.3); Total Protein 5.9 g/dl (6.3-8.2); eGFR > 60.00
[2024-09-23 17:27] LABS: Calcium 8.8 mg/dl (8.4-10.2); Chloride 104 mmol/L (98-107); Sodium 136 mmol/L (135-145)
--- NOTE | 2024-09-23 18:16 | ED.GENMED ---
History of Present Illness
General
Chief Complaint: Abnormal Lab Value
Source: patient
Exam Limitations: none
Time Seen by Provider: 09/23/24 17:05
Nursing documentation reviewed up to this point in time: agreed with
History of Present Illness
History of Present Illness:
74 y/o F with h/o SVT, htn, hld
here with anemia from outpatient labs drawn this afternoon 4.1
pt was sent to ED by pcp
pt has been having a few weeks of fatigue, which she attributed to her poor sleeping habits of late
she has had intermittent dark stool but not consistent and she didn't think much of it. she has not had any abdominal pain, rectal bleeding
pt did have h/o colitis last year and had colonoscopy but no source identified; she was treated with abx;
pt says off and on she has had some occasional dark stool sbu tnothing significant
no iron
no h/o anemia
is strongly requesting blood that has not been vaccinated for covid 19.
Past History
Past History
ED Past Medical History: HTN and Hypercholesterolemia
ED Past Surgical History:
Social History
Tobacco: Non-smoker
Alcohol: None
Drug: None
Personal:
Living: with family
Review of Systems
Review of Systems
Allergies reviewed?: Yes
All Other Systems: Not applicable
Phy Exam
Physical Exam
Physical Exam:
GENERAL: Alert , in no apparent distress
EYE: pupils equal and reactive , pale
NECK: Supple
ENT: o/p clr, mmm.
CARDIAC: Regular rate and rhythm .
LUNGS: Clear breath sounds bilaterally, no acute respiratory distress, no wheezes/rales/rhonchi
ABDOMEN: Soft, without focal tenderness, no r/g, no cvat, normal bowel sounds
rectal: MEDIUM BROWN STOOL WHICH IS HEME POS
NEUROLOGICAL: Alert and oriented, no focal neuro deficits
SKIN: Warm and dry, skin intact.
MUSCULOSKELETAL: No edema, well perfused. neg catia's sign
PSYCH: Normal and appropriate interaction.
Course
Orders/Labs/Results
Orders:
Orders
09/23/24 16:34
Type+Screen Urgent
Complete Blood Count/With Diff Urgent
Comprehensive Metabolic Panel Urgent
09/23/24 17:21
ABO2 Urgent
BBK Wristband Number:
Associate notified that ABO2 has been ordered: [id number]
Date: 09/23/24
Time: 16:44
Negative Stripper ID: [id number]
09/23/24 18:13
* Blood Bank Products Urgent
Blood Bank Products: *Packed RBC Leuko(PRBC's)
Quantity: 2
Transfuse Today: Yes
Reason: Anemia
Pantoprazole [Protonix IV] 40 mg IV NOW STA
Abnormal Lab Results
09/23/24
16:34
RBC 2.71 L 10^6/uL
(4.20-5.40)
Hgb 4.1 L* g/dL
(12.0-16.0)
Hct 16.1 L* %
(37.0-47.0)
MCV 59.4 L fL
(81.0-99.0)
MCH 15.1 L pg
(27.0-31.0)
MCHC 25.5 L g/dL
(33.0-37.0)
RDW 20.2 H %
(11.5-14.5)
BUN 23 H mg/dl
(7-17)
Glucose 153 H mg/dl
(70-99)
Total Protein 5.9 L g/dl
(6.3-8.2)
Crossmatch IS Only See Detail
09/23/24 16:34
09/23/24 16:34
Vital Signs
Initial and Last Documented VS:
Initial Vital Signs
Temp Pulse Resp BP Pulse Ox
36.9 C 94 18 164/64 100
09/23/24 16:24 09/23/24 16:24 09/23/24 16:24 09/23/24 16:24 09/23/24 16:24
Last Documented Vital Signs
Temp Pulse Resp BP Pulse Ox
36.9 C 94 16 151/60 98
09/23/24 16:24 09/23/24 17:20 09/23/24 17:24 09/23/24 17:19 09/23/24 17:23
MDM/Problems Addressed
Differential Diagnosis Includes:
gi bleed, anemia
MDM/Problems Addressed:
74 y/o F
no AC
on aspirin daily
here with low hg from outpatient labs
some fatigue and mild sob with activities
no cp, headache, bleeding from anywhere but sh ehas had intermittently dark stools
no h/o UGI bleed before
no ppi
on exam pt is well appearing
stable vitals
abdomen notnder
subtle systolic murmur
heme POS brown stool
consented for blood
pt is aware we cannto screen for COVID 19 vaccinated blood and she consented regardless
admit
PPI
*Critical Care Note
Total Time (30-74mins, 75-104mins- exclusive of procedures): Not Applicable
ED Attending Note
-
Portions of this chart may have been created with voice recognition software.� Occasional wrong word or��sound alike� substitutions may have occurred due to the inherent limitations of voice recognition software.
Discharge Plan
Departure
Patient Disposition: Admit
Date of Disposition: 09/23/24
Time of Disposition: 18:37
Admit to: Med/Surg
Presentation/result/management discussed w/ accepting MD/DO: Hospitalist
Patient with high blood pressure during this ER visit?: No
Condition: Fair
Covid-19: Not Applicable
Discharge Problem:
GI (gastrointestinal bleed), Symptomatic anemia
Prescriptions:
No Action
cetirizine 10 mg Tablet
10 mg PO HS Qty: 0 0RF
digoxin 250 mcg (0.25 mg) Tablet
250 mcg PO DAILY Qty: 0 0RF
verapamil 180 MG capsule,ext rel. pellets 24 hr
180 mg PO BID Qty: 0 0RF
aspirin 325 mg Tablet
650 mg PO DAILYPRN PRN (Reason: headache)
lisinopril 5 mg Tablet
5 mg PO HS
Systane (PF) 0.4-0.3 % Dropperette
1 drp BOTH EYES BID
Quercetin Complex 500-225-33 mg Capsule
1 cap PO DAILY
Referrals:
Jorje Nichole MD [Family Provider] -
Interventions
Interventions:
*Risk Screen - Suicide Last Done: 09/23/24 16:24
*General Assessment Last Done: 09/23/24 16:24
*Neglect/Abuse Screening Last Done: 09/23/24 16:24
*ED- Fall Risk Assessment Last Done: 09/23/24 17:23
*ED COVID-19 Vaccine History Last Done: 09/23/24 17:23
Discharge Date and Time
Print Language: FAROESE
[2024-09-23] MEDS: PROTONIX IV 40 MG IV (18:19)
--- NOTE | 2024-09-23 18:49 | HPS.HSE ---
Family Physician
-
Family Physician: Jorje Nichole
Chief Complaint
-
Symptomatic anemia
History of Present Illness
This is a 74-year-old female with past medical history significant for SVT on digoxin, hypertension, hyperlipidemia presenting to the emergency department after outpatient blood work showed hemoglobin level of 4.1.
Patient reported that for several months she has been having shortness of breath dyspnea on exertion lightheadedness and some dizziness. She denies having any chest pain. She saw her PMD yesterday who recommended that she get hemoglobin levels and
came back positive for severe anemia and hemoglobin of 4.1. Patient endorsed symptoms was over the last 2 weeks. She says she she has been using aspirin 25 mg 2 tablets daily for headaches. She reports intermittent dark stools. She denies seeing
any hematochezia. She denies abdominal pain nausea or vomiting. Patient denies any prior history of peptic ulcer disease. She denies prior history of lower GI bleed.
In the emergency department she maintained a blood pressure of 150/60 with a pulse of 94 and she was satting 90% on room air. CBC was notable for hemoglobin of 4.1, MCV 59, but otherwise unremarkable with normal platelet count. Electrolytes
BUN/creatinine were normal.
Medical History
Past Medical History
Past Medical History: Reports Arrhythmia (Supraventricular tachycardia), HTN and Hypercholesterolemia
Additional Past Medical History:
History of pancolitis status post colonoscopy 1 year ago
Past Surgical History: Reports
Social History
Tobacco: Non-smoker
Alcohol: Occasional
Drug: None
Personal:
Living: With Family
Family History
Family History: Not pertinent
Allergies / Home Medications
Allergies reflects when Allergies were last updated in [facility].
Home Medications with original date entered in [facility]
Allergy/Medication List:
Allergies
Allergy/AdvReac Type Severity Reaction Status Date / Time
cat dander Allergy ITCHY EYES Verified 09/23/24 16:22
mold Allergy Unknown Verified 09/23/24 16:22
pollen extracts Allergy Unknown Verified 09/23/24 16:22
Sulfa (Sulfonamide Allergy 'gigantic Verified 09/23/24 16:22
Antibiotics) hives'
vaccine adjuvant system, Allergy Swelling Verified 09/23/24 16:22
AS01B liposomal
Home Medications
cetirizine 10 mg tablet 10 mg PO HS Allergies #0 tabs 08/25/23
digoxin 250 mcg (0.25 mg) tablet 250 mcg PO DAILY Arrhythmia #0 tabs 08/25/23
verapamil 180 mg 24 hr capsule,extended release 180 mg PO BID Arrhythmia #0 caps 08/25/23
aspirin 325 mg tablet 650 mg PO DAILYPRN PRN headache 09/23/24
lisinopril 5 mg tablet 5 mg PO HS 09/23/24
peg 400-propylene glycol (PF) 0.4 %-0.3 % eye drops in a dropperette (Systane (PF)) 1 drp BOTH EYES BID 09/23/24
vitamin C 500 mg-quercetin 225 mg-bioflavonoids, citrus 33 mg capsule (Quercetin Complex) 1 cap PO DAILY 09/23/24
Review of Systems
-
History Source: Patient
Constitutional: Reports No Symptoms
EENT: Reports No Symptoms
Respiratory: Reports No Symptoms
Cardiac: Reports No Symptoms
Abdomen/GI: Reports Black Stools
: Reports No Symptoms
Musculoskeletal: Reports No Symptoms
Skin: Reports No Symptoms
Neurological: Reports No Symptoms
Endocrine: Reports No Symptoms
Hematologic/Lymphatic: Reports No Symptoms
Psych: Reports No Symptoms
Physical Exam
Vital Signs
Vital Signs
Temp Pulse Resp BP Pulse Ox
98.5 F 90 14 151/64 100
09/23/24 18:43 09/23/24 18:43 09/23/24 18:43 09/23/24 18:43 09/23/24 18:43
Physical Exam
General: Well Developed, Well Nourished, No Apparent Distress and Comfortable
HEENT: NormoCephalic, Anicteric, Moist mucous membranes and Atraumatic
Respiratory: Clear
Cardiac: S1/S2 and Regular Rhythm
GI: Soft, Non Tender, Non Distended and Normal Bowel Sounds
Rectal: Brown and Hem Positive
Genito-urinary: Deferred by me
Musculoskeletal: No Clubbing, No Cyanosis and No Edema
Skin: Warm
Neuro: AO x 3 and Nonfocal/grossly intact
Hematologic/Lymphatic: No Lymphadenopathy
Psych: Calm
Laboratory Results
-
09/23/24 16:34
09/23/24 16:34
Laboratory Results
Total Bilirubin 0.3 mg/dl (0.2-1.3) 09/23/24 16:34
AST 24 U/L (14-36) 09/23/24 16:34
ALT 26 U/L (0-35) 09/23/24 16:34
Alkaline Phosphatase 79 U/L (38-126) 09/23/24 16:34
Data Reviewed
-
Lab Data: Labs Reviewed by me
Old Records: Reviewed
Impression/Plan
-
IMPRESSION:
74-year-old here with symptomatic anemia hemoglobin of 4.1, symptoms ongoing for several weeks, has history of 60 mg daily aspirin use about 4-5 times a week. Intermittent dark stools. Here she has heme positive brown stools. Hemodynamically
stable. She is not on any thinners.
PLAN:
1. Symptomatic anemia - suspect secondary to likely upper gi bleed with SRUTHI possibly in relation to ASA use but patient has no abdominal pain, nausea or vomiting. Cannot rule out rule out colonic source but patient had a colonoscopy with polyp
removal 1 year ago.
- admit to telemetry
- type and screen and transfusion of 2 units prbc now
- ppi iv bid
- orthostatics daily
- iron panel and ferritin, will need supplementation of iron after transfusions
- holding aspirin and any thinners
- h*h q 8 for now, transfuse to goal Hgb > 7
- GI consultation
2. HTN
- hold lisinopril, restart in am
- continue verapmail with hold parameters (h/o SVT)
- continue digoxin
DVT PPX - SCDs
Code Status - Full Code
--- NOTE | 2024-09-23 23:02 | PTCARENOTE ---
H/H retimed, pt requiring 2nd unit of PRBCs.
--- NOTE | 2024-09-23 23:05 | PTCARENOTE ---
Pt received from ED via stretcher. Shifted self from stretcher to bed w/o incident. SR via telemetry. Admission and assessment completed. Physical assessment documented and plan of care discussed. VAT contacted to place 2nd IV site per order.
#20 RAC w/PRBCs00 transfusing w/o signs or symptoms of reaction. Pt instructed to ring for assist, remain bedrest until orthos completed, verbalizes understanding. Call yan w/in reach.
[2024-09-23] MEDS: REFRESH EYE DROPS (PF) 1 DROPS BOTH EYES (23:18)
[2024-09-23] MEDS: CALAN EXTENDED RELEASE 180 MG PO (23:18)
[2024-09-23] MEDS: ZYRTEC 10 MG PO (23:19)
[2024-09-24] VITALS (16 sets, daily range): BP systolic 113–163; BP diastolic 50–76; PULSE 73–95
--- NOTE | 2024-09-24 01:21 | PTCARENOTE ---
PRBC transfusion complete. No signs/symptom of reaction. VSS.
[2024-09-24 03:43] LABS: % Basophils 0.8 % (0-2); % Eosinophils 1.1 % (0-6); % Immature Granulocytes 0.7 % (0-0.5); % Lymphocytes 14.5 % (20.5-51.1); % Monocytes 6.3 % (1.7-9.3); % Neutrophils 76.6 % (42.2-75.2); Absolute Basophils 0.1 10^3/uL (0-0.2); Absolute Eosinophils 0.1 10^3/uL (0-0.7); Absolute Immature Granulocytes 0.1 10^3/uL (0-0.05); Absolute Lymphocytes 1.3 10^3/uL (1.2-3.4); Absolute Monocytes 0.6 10^3/uL (0.1-0.6); Absolute Neutrophils 6.8 10^3/uL (1.4-6.5); Hematocrit 23.2 % (37.0-47.0); Hemoglobin 6.8 g/dL (12.0-16.0); Mean Corp Hgb Conc. 29.3 g/dL (33.0-37.0); Mean Corpuscular Hgb 19.3 pg (27.0-31.0); Mean Corpuscular Volume 65.9 fL (81.0-99.0); Mean Platelet Volume 9.5 fL (7.4-10.4); Nucleated Red Blood Cells % 0 %; Platelet Count 295 10^3/uL (130-400); Red Blood Cell Count 3.52 10^6/uL (4.20-5.40); Red Cell Dist. Width 26.5 % (11.5-14.5); Reticulocyte Count 0.7 % (0.4-2.8); White Blood Cell Count 8.9 10^3/uL (4.8-10.8)
--- NOTE | 2024-09-24 03:49 | W.PN.UPDATE ---
Update Note
Progress Note Update
hgb level 6.8 after 2 units of blood received. Vital signs within normal limits.
-One unit of blood ordered.
[2024-09-24 03:50] LABS: Blood Urea Nitrogen 16 mg/dl (7-17); Calcium 8.5 mg/dl (8.4-10.2); Carbon Dioxide 22 mmol/L (22-30); Chloride 109 mmol/L (98-107); Estimated Creatinine Clearance 62 ml/min; Glucose 109 mg/dl (70-99); Iron 63 ug/dl (37-170); Potassium 3.9 mmol/L (3.5-5.1); Sodium 139 mmol/L (135-145); eGFR > 60.00
[2024-09-24 03:59] LABS: Percent Saturation 11 % (20-50); Total Iron Binding Capacity 531 ug/dl (265-497)
--- NOTE | 2024-09-24 04:28 | PTCARENOTE ---
Hgb 6.8, TT to [employer] covering house. Electronic order to transfuse 1 unit of PRBCs. Pt updated on plan of care.
[2024-09-24 04:40] LABS: Ferritin 4.8 ng/ml (11.1-264.0)
[2024-09-24 07:35] LABS: Anisocytosis 1+; Hypochromasia 2+; Normal RBC Morphology No; Polychromasia 1+
[2024-09-24 07:36] LABS: Ovalocytes Slight
[2024-09-24] MEDS: CALAN EXTENDED RELEASE 180 MG PO ×2 (08:09→20:29)
[2024-09-24] MEDS: PROTONIX IV 40 MG IV ×2 (08:10→20:29)
[2024-09-24] MEDS: REFRESH EYE DROPS (PF) 1 DROPS BOTH EYES ×2 (08:10→20:29)
[2024-09-24] MEDS: FLUSH (NSS) 1 FLUSH IV (08:10)
[2024-09-24] MEDS: NSS (PRESERVATIVE FREE) 10 ML IV ×2 (08:10→20:29)
--- NOTE | 2024-09-24 09:55 | CON.GI ---
Consultation
-
Date/Time Consultation Requested: 09/24/2024
Date/Time Consultation Performed: 09/24/2024
Requesting Provider: Hospitalist
Performing Provider: Deon FREED
Reason for Consultation: anemia
Medical History
Chief Complaint / HPI
Chief Complaint: Symptomatic anemia
History of Present Illness:
74-year-old female with history of SVT, dyslipidemia, hypertension admitted to ED-outpatient lab showing hemoglobin of 4.1. Patient has been experiencing fatigue, lightheadedness, exertional dyspnea over the last few months. Denies any chest pain.
She went for PCP visit and did labs which were showing hemoglobin of 4.1. Patient denies any blood in the stool or melena or hematemesis. She claims her stools are mostly brown in color. Denies any abdominal pain/nausea/vomiting. Patient has
been using aspirin for headache.
Patient was admitted 08/[address] scan showing pancolitis at that time. He underwent colonoscopy with Dr. Sauceda 08/24/2023 -erythema and deep ulceration was found in the sigmoid/descending/splenic flexure/transverse
colon/descending colon.10 mm polyp in the hepatic flexure/ Diverticulosis.
She had a follow-up office visit with Dr. Sauceda. Since she did not have any colitis symptoms she opted to hold off on repeat colonoscopy to check healing.
Past Medical History
Past Medical History: Other (Supraventricular tachycardia), HTN and Hypercholesterolemia)
Past Surgical History:
Social History
Tobacco: Non-Smoker
Alcohol: Occasional
Drug: None
Allergies / Home Medications
Allergy/AdvReac Type Severity Reaction Status Date / Time
cat dander Allergy ITCHY EYES Verified 09/23/24 16:22
mold Allergy Unknown Verified 09/23/24 16:22
pollen extracts Allergy Unknown Verified 09/23/24 16:22
Sulfa (Sulfonamide Allergy 'gigantic Verified 09/23/24 16:22
Antibiotics) hives'
vaccine adjuvant system, Allergy Swelling Verified 09/23/24 16:22
AS01B liposomal
�Medication �Instructions �Recorded
cetirizine 10 mg tablet 10 mg PO HS Allergies #0 tabs 08/25/23
digoxin 250 mcg (0.25 mg) tablet 250 mcg PO DAILY Arrhythmia #0 tabs 08/25/23
verapamil 180 mg 24 hr 180 mg PO BID Arrhythmia #0 caps 08/25/23
capsule,extended release
aspirin 325 mg tablet 650 mg PO DAILYPRN PRN headache 09/23/24
lisinopril 5 mg tablet 5 mg PO HS Blood Pressure 09/23/24
peg 400-propylene glycol (PF) 0.4 1 drp BOTH EYES BID 09/23/24
%-0.3 % eye drops in a dropperette
(Systane (PF))
vitamin C 500 mg-quercetin 225 1 cap PO DAILY Supplement 09/23/24
mg-bioflavonoids, citrus 33 mg
capsule (Quercetin Complex)
Review of Systems
Vital Signs
Temp Pulse Resp BP Pulse Ox
98.7 F 74 18 150/64 97
09/24/24 07:30 09/24/24 08:09 09/24/24 07:30 09/24/24 08:09 09/24/24 08:08
Physical Exam
Exam
General: No Apparent Distress
Respiratory: Clear
Cardiac: S1/S2
GI: Soft, Non Tender, Non Distended and Normal Bowel Sounds
Neuro: AO x 3
Results
WBC 8.9 10^3/uL (4.8-10.8) 09/24/24 03:08
Hgb 6.8 g/dL (12.0-16.0) L* D 09/24/24 03:08
Hct 23.2 % (37.0-47.0) L 09/24/24 03:08
MCV 65.9 fL (81.0-99.0) L 09/24/24 03:08
Plt Count 295 10^3/uL (130-400) 09/24/24 03:08
Absolute Neuts (auto) 6.8 10^3/uL (1.4-6.5) H 09/24/24 03:08
Sodium 139 mmol/L (135-145) 09/24/24 03:08
Potassium 3.9 mmol/L (3.5-5.1) 09/24/24 03:08
Chloride 109 mmol/L (98-107) H 09/24/24 03:08
Carbon Dioxide 22 mmol/L (22-30) 09/24/24 03:08
BUN 16 mg/dl (7-17) 09/24/24 03:08
Creatinine 0.6 mg/dL (0.6-1.0) 09/24/24 03:08
Calcium 8.5 mg/dl (8.4-10.2) 09/24/24 03:08
Total Bilirubin 0.3 mg/dl (0.2-1.3) 09/23/24 16:34
AST 24 U/L (14-36) 09/23/24 16:34
ALT 26 U/L (0-35) 09/23/24 16:34
Alkaline Phosphatase 79 U/L (38-126) 09/23/24 16:34
Diagnostic Image Results:
Prior GI Procedures:
EGD: none
Colonoscopy: 08/24/2023
Impression: - The procedure was aborted in the ascending colon due
to significant looping and significant colitis.
- Patchy moderate inflammation was found in the
sigmoid colon, in the descending colon, at the splenic
flexure, in the transverse colon and in the ascending
colon secondary to colitis. Biopsied.
- DEEP ULCERS AT SPLENIC FLEXURE, SIGMOID. ERYTHEMA
THROUGHOUT COLON WITH RECTAL SPARING.
- One 10 mm polyp at the hepatic flexure, removed with
a hot snare. Resected and retrieved. Path tubular adenoma.
- Diverticulosis in the sigmoid colon.
Colon biopsy path suggestive of ischemic changes. Increased intraepithelial lymphocytes noted.
MRA 10/2023
-no significant narrowing involving the origin of celiac or SMA
06/24/2018 (Do) �- Non-bleeding internal hemorrhoids.
�� � � � � � � � � � - One 6 mm polyp in the transverse colon, removed with a
�� � � � � � � � � � jumbo cold forceps. Resected and retrieve (tubular adenoma)
Assessment / Plan
-
74-year-old female with history of SVT, hypertension, dyslipidemia admitted with symptomatic anemia with hemoglobin of 4.1. Denies any overt GI bleeding. Was taking aspirin for headache. No prior EGD. Patient was admitted with pancolitis 08/2023.
She underwent colonoscopy at that time with Dr. Sauceda. Details above. Biopsy path suggestive of ischemic colitis. MRA - no stenosis. Since her symptoms resolved she opted to hold off on repeat colonoscopy to check healing.
-- Symptomatic anemia- Hb on admission 4.1. S/p 3 units PRBC currently denies any overt GI bleeding. Although documented dark stool patient claims her stool has been more brownish dark. Aspirin intake for headache.
plan
N.p.o.
Continue PPI
avoid NSAIDs
Check a.m. CBC. If hemoglobin above 7 will schedule for EGD to r/o PUD
If EGD negative will discuss about colonoscopy as the next step
Total Time Spent with Patient (in minutes): 55
-
-
Thank you for consultation and allowing me to participate in the patient's care. Please call the loss prevention operations manager GI physician during the after hours with any questions or concerns.
--- NOTE | 2024-09-24 09:59 | W.PN.HOSP.TC ---
Addendum entered and electronically signed by Nora Muir MD 09/24/24 10:58:
I saw and evaluated the patient. I reviewed the resident�s note and agree with findings and plan as documented in the resident�s note.
A/P:
# Anemia due to suspected upper GI bleed:
# Iron deficiency anemia:
Heme positive stools
s/p 3 units of packed red blood cells transfusion
Follow Hgb after transfusion
GI on board with plan for EGD
Holding aspirin and blood thinners
# Essential Hypertension
Continue home verapamil and lisinopril
# History of supraventricular arrhythmia:
Continue home verapamil and digoxin
Check Dig level
DVT ppx: SCD
FC
DW GI
Original Note:
Today's Communication/Plan
-
- Trend hemoglobin
- Await results of EGD
- Follow-up with GI
Assessment / Plan
Assessment / Plan
Anemia due to suspected upper GI bleed:
Iron deficiency anemia:
Heme positive stools:
- Has had 3 units of packed red blood cells
-Most recent hemoglobin is 6.8, ordered stat hemoglobin that still pending
-Orthostatic vitals daily
-Iron studies shows iron deficiency anemia
- GI consulted
- Patient is to be kept on n.p.o. and if hemoglobin is more than 7 then EGD to be performed today
- Holding aspirin and blood thinners
- Monitor hemoglobin and transfuse if hemoglobin is less than 7
Hypertension:
- Blood pressure is 150/64 today
- Continue verapamil
- Continue lisinopril
History of supraventricular arrhythmia:
- Continue on digoxin
- Monitor for visual changes, GI upset, electrolyte disturbances, EKG abnormalities
Anticipated Discharge: 24 - 48 hours
Subjective/Interval History
-
Date of Service: September 24, 2024
Patient presented from PCP office to emergency department complaining of months of shortness of breath and dyspnea on exertion. On admission hemoglobin of 4.1, received 2 units of blood transfusion and hemoglobin went up to 6.8 received another
unit of packed red blood cells, and new hemoglobin is pending. She is also had a history of intermittent dark-colored stools.
Objective Data
-
Labs:
Laboratory Results
09/24/24 09/24/24 09/24/24
01:00 03:00 03:08
WBC Cancelled Cancelled 8.9
Hgb Cancelled Cancelled 6.8 L* D
Hct Cancelled Cancelled 23.2 L
Plt Count Cancelled Cancelled 295
Sodium 139
Potassium 3.9
Chloride 109 H
Carbon Dioxide 22
BUN 16
Creatinine 0.6
Glucose 109 H
Calcium 8.5
09/24/24 09/24/24
09:54 14:00
WBC
Hgb Pending Pending
Hct Pending
Plt Count
Sodium
Potassium
Chloride
Carbon Dioxide
BUN
Creatinine
Glucose
Calcium
Vital Signs:
Vital Signs
Temp Pulse Resp BP Pulse Ox
98.7 F 74 18 150/64 97
09/24/24 07:30 09/24/24 08:09 09/24/24 07:30 09/24/24 08:09 09/24/24 08:08
I&O
09/23/24 09/24/24 09/25/24
06:59 06:59 06:59
Intake Total 750 / 750
Balance 750 / 750
Review of Systems
-
History Source: Patient
Respiratory: Denies Cough
Cardiac: Denies Chest Pain, Syncope or Orthopnea
Abdomen/GI: Reports Bloody Stools; Denies Abdominal Pain, Nausea or Vomiting
Genitourinary: Denies Dysuria, Frequency or Flank Pain
Skin: Denies Itching or Rash
Neuro: Reports Dizzy and Lightheadedness; Denies Headache, Weakness or Numbness
Hematologic / Lymphatic: Denies Bleeding
Physical Exam
-
General: Well Developed
Respiratory: Clear to Auscultation
Cardiac: Regular Rhythm and S1/S2
GI: Soft, Nontender and Nondistended
Rectal: Hem Positive and Other
Musculoskeletal: No Clubbing, No Cyanosis and No Edema
Skin: Warm and Dry
Neuro: Awake, Alert, Oriented and AO x 3
Data Reviewed
-
Labs: Labs Reviewed by me and Discussed with Physician
[2024-09-24 10:11] LABS: Hemoglobin 8.8 g/dL (12.0-16.0)
--- NOTE | 2024-09-24 12:15 | PTCARENOTE ---
Pt returned from PACU via bed, accompanied by DIGITAL CONTENT MANAGER. PT AAO x3, MANNING well, ambulatory to bed with minimal assistance, no c/o weakness/dizziness. VSS. Telemetry:NSR. On room air- pulse ox 99%, no SOB noted. Abd large, soft, BS (+); to start
clear liquid diet. No c/o abd discomfort. pt aware of bowel prep to start @ 1600 for colonoscopy on 09/25; aware of NPO past midnight 09/25. Pt DTV. Afebrile; skin W/D/I. Will continue to monitor.
[2024-09-24] MEDS: LANOXIN 250 MCG PO (13:00)
[2024-09-24 14:32] LABS: Hematocrit 27.1 % (37.0-47.0); Hemoglobin 8.4 g/dL (12.0-16.0)
--- NOTE | 2024-09-24 15:30 | CM ---
Met with patient to obtain information for assessment. She stated that she lives with her spouse in a one story home with no steps to enter. She described herself as independent with her ADLs, personal care, dressing and bathing. 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 She stated that she is active and she goes to the gym. She has never had VN services. She has had no DME.
Patient has a prescription plan and uses, [facility] and [facility] for all of her medications.
Patient's PCP is, Jorje Nichole.
Plan: Case management will continue to follow and assist with discharge planning. Patient stated that she would like to return home.
[2024-09-24 15:49] LABS: Digoxin 2.4 ng/ml (0.8-2.0)
--- NOTE | 2024-09-24 16:01 | PTCARENOTE ---
Pt resting comfortably since return from GI lab; MANNING well, OOB to BR; paty well, no c/o weakness/dizziness. VSS. Telemetry:NSR. On room air- pulse ox 99%, no SOB noted. Abd soft, paty clear liquid diet; pt to start bowel prep; aware of NPO past
midnight 09/25 for colonoscopy. Resting comfortably at present. Will continue to monitor.
[2024-09-24] MEDS: NULYTELY SOLUTION 4 LITERS PO (16:34)
[2024-09-24] MEDS: ZYRTEC 10 MG PO (22:34)
[2024-09-25 03:36] VITALS: BP 148/71
--- NOTE | 2024-09-25 03:37 | PTCARENOTE ---
Addendum entered by Anette Fried RN 09/25/24 06:17:
Pt's BM is still not clear. RN notified [facility]- told they'll notify GI, no new orders at this time. Pt's call [facility] is within reach.
Original Note:
Pt has had few BM's after finishing bowel prep and is not clear. RN notified [facility]- no new orders at this time. Pt's call [facility] is within reach.
[2024-09-25] MEDS: CITROMA 300 ML PO (06:38)
--- NOTE | 2024-09-25 06:43 | W.PN.UPDATE ---
Update Note
Progress Note Update
Patient finished prep at 0300 but has had limited stool output and color remains brown. Dr. Trammell aware and will give dose of Mag Citrate and if brown stools still by 10-11am then will have to consider a colon on Saturday if she�s amenable.
[2024-09-25 07:03] LABS: Hemoglobin 8.6 g/dL (12.0-16.0); Mean Corp Hgb Conc. 30.7 g/dL (33.0-37.0); Mean Corpuscular Hgb 21.1 pg (27.0-31.0); Mean Corpuscular Volume 68.6 fL (81.0-99.0); Mean Platelet Volume 9.5 fL (7.4-10.4); Platelet Count 262 10^3/uL (130-400); Red Blood Cell Count 4.08 10^6/uL (4.20-5.40); Red Cell Dist. Width 26.7 % (11.5-14.5); White Blood Cell Count 5.6 10^3/uL (4.8-10.8)
[2024-09-25 07:22] LABS: Blood Urea Nitrogen 12 mg/dl (7-17); Calcium 8.8 mg/dl (8.4-10.2); Carbon Dioxide 24 mmol/L (22-30); Chloride 110 mmol/L (98-107); Estimated Creatinine Clearance 62 ml/min; Glucose 86 mg/dl (70-99); Sodium 141 mmol/L (135-145); eGFR > 60.00
[2024-09-25] MEDS: CALAN EXTENDED RELEASE 180 MG PO (07:55)
[2024-09-25] MEDS: REFRESH EYE DROPS (PF) 1 DROPS BOTH EYES (07:57)
[2024-09-25] MEDS: NSS (PRESERVATIVE FREE) 10 ML IV (07:57)
[2024-09-25] MEDS: PROTONIX IV 40 MG IV (07:57)
[2024-09-25 08:12] VITALS: BP 154/68
[2024-09-25 11:34] VITALS: BP 151/67
--- NOTE | 2024-09-25 12:58 | W.PN.HOSP.TC ---
Addendum entered and electronically signed by Nora Muir MD 09/27/24 13:48:
total DC time 40 min
Addendum entered and electronically signed by Nora Muir MD 09/25/24 14:48:
I saw and evaluated the patient. I reviewed the resident�s note and agree with findings and plan as documented in the resident�s note.
A/P:
# Anemia due to suspected GI bleed:
# Iron deficiency anemia:
Heme positive stools
s/p 3 units of packed red blood cells transfusion, Follow up Hgb improved from 4.1 to 8.6
s/p EGD 09/24 which noted normal esophagus, Gastritis (biopsied), A single gastric polyp (Biopsied).
She was recommended for inpatient colonoscopy, however she was eager to be discharged. Colonoscopy was planned for her for upcoming Saturday09/28/2024
She can continue clear liquid diet and Protonix 40 mg daily will await colonoscopy.
Also hold aspirin
# Essential Hypertension
Continue home verapamil and lisinopril
# History of supraventricular arrhythmia:
Continue home verapamil
Dig level elevated at 2.4, hold further digoxin, follow-up with cardiology
DVT ppx: SCD
FC
DW GI
Original Note:
Today's Communication/Plan
-
- Colonoscopy on saturday
Assessment / Plan
Assessment / Plan
Anemia due to suspected upper GI bleed:
Iron deficiency anemia:
Heme positive stools:
- Has had 3 units of packed red blood cells
-Hgb is 8.6 today, 8.4 yesterday
-Orthostatic vitals daily
-Iron studies shows iron deficiency anemia
- GI following
- EGD showed one polyp in stomach and gastritis, Colonoscopy scheduled for Saturday
- Patient is to be kept on clear liquids
- Holding aspirin and blood thinners
- Monitor hemoglobin and transfuse if hemoglobin is less than 7
Hypertension:
- Blood pressure is 150/67 today
- Continue verapamil
- Continue lisinopril
History of supraventricular arrhythmia:
- D/c'd digoxin because digoxin level came back at 2.4
Anticipated Discharge: Today
Subjective/Interval History
-
Date of Service: September 25, 2024
Patient has no acute medical complaints today.
Objective Data
-
Labs:
Laboratory Results
09/25/24
06:29
WBC 5.6
Hgb 8.6 L
Hct 28.0 L
Plt Count 262
Sodium 141
Potassium 4.0
Chloride 110 H
Carbon Dioxide 24
BUN 12
Creatinine 0.6
Glucose 86
Calcium 8.8
Vital Signs:
Vital Signs
Temp Pulse Resp BP Pulse Ox
98.8 F 71 18 151/67 98
09/25/24 11:34 09/25/24 11:34 09/25/24 11:34 09/25/24 11:34 09/25/24 11:34
I&O
09/24/24 09/25/24 09/26/24
06:59 06:59 06:59
Intake Total 750 / 750 420 / 420 480 / 480
Balance 750 / 750 420 / 420 480 / 480
Review of Systems
-
History Source: Patient
Respiratory: Denies Cough
Cardiac: Denies Chest Pain, Syncope or Orthopnea
Abdomen/GI: Reports Bloody Stools; Denies Abdominal Pain, Nausea or Vomiting
Genitourinary: Denies Dysuria, Frequency or Flank Pain
Skin: Denies Itching or Rash
Neuro: Reports Dizzy and Lightheadedness; Denies Headache, Weakness or Numbness
Hematologic / Lymphatic: Denies Bleeding
Physical Exam
-
General: Well Developed
Respiratory: Clear to Auscultation
Cardiac: Regular Rhythm and S1/S2
GI: Soft, Nontender and Nondistended
Rectal: Hem Positive and Other
Musculoskeletal: No Clubbing, No Cyanosis and No Edema
Skin: Warm and Dry
Neuro: Awake, Alert, Oriented and AO x 3
Data Reviewed
-
Labs: Labs Reviewed by me and Discussed with Physician
--- NOTE | 2024-09-25 13:59 | CM ---
Met with patient as she is cleared for discharge. Patient signed IMM, it was reviewed and on chart. Patient has a ride home.
Plan: Case management will continue to follow and assist with discharge planning. Home no needs.
--- NOTE | 2024-09-25 14:00 | W.PN.GI.CBS2 ---
Today's Communication / Plan
-
Not clear for colonoscopy despite additional prep this AM with brown solid stools. Have coordinated an expedited colonoscopy as an outpatient on 09/28 with her primary Dianetic Counselor given /. Reviewed strict ED return
precautions. See rest of care as outlined below.
Assessment / Plan
-
#Symptomatic Anemia
#Heme Positive Stools
74-year-old female with history of SVT, hypertension, dyslipidemia admitted with symptomatic anemia with hemoglobin of 4.1. Denies any overt GI bleeding. Was taking aspirin for headache. No prior EGD. Patient was admitted with pancolitis 08/2023.
She underwent colonoscopy at that time with Dr. Sauceda. Details above. Biopsy path suggestive of ischemic colitis. MRA - no stenosis. Since her symptoms resolved she opted to hold off on repeat colonoscopy to check healing.
-- Symptomatic anemia- Hb on admission 4.1. S/p 3 units PRBC currently denies any overt GI bleeding. Although documented dark stool patient claims her stool has been more brownish dark. Aspirin intake for headache.
- S/p EGD 09/24/24 which was grossly unremarkable for any source of her anemia
- Hgb remains stable over 48-72 hours without any signs of over GI bleeding
Recommendations
- Unfortunately patient was still not clear despite prep, does not wish to stay over weekend given hol
- Reasonable for very close outpatient follow for an outpatient colonoscopy as she is without any overt GI bleeding and only with heme (+) stools
- Discussed with patient extensively and have coordinated an outpatient colonoscopy for next Saturday on 09/28 with her primary Dianetic Counselor, Dr. Sauceda, for further evaluation of her anemia and heme (+) stools along with her previous history of
ischemic colitis as she was previously recommended to have a repeat colonoscopy
- Have coordinated further prep instructions as well which have been dropped off to patient at bedside this AM by our clinical staff. She should remain on strict CLD throughout weekend
- Hgb remains stable over the past 48-72 hrs and without any overt GI bleeding
- Empiric PPI 40 mg once daily
- Reviewed strict ED return precautions if any worsening symptoms or overt GI bleeding (ie rectal bleeding, melena, etc)
- Pending path results from EGD, will be f/u as an outpatient with Dr. Rivera
- Strict avoidance of all NSAIDs
- Rest of care per primary team
Discussed with patient extensively regarding close outpatient follow-up along with outpatient colonoscopy. Discussed with primary internal medicine team.
GI team will sign-off, please call back with any questions or concerns.
Subjective
Subjective
Date of Service: September 25, 2024
- S/p EGD 09/24/24 which was grossly unremarkable for any source of her anemia
- Hgb remains stable over 48-72 hours without any signs of over GI bleeding
Resting comfortably in bed, unfortunately not clear this AM and still with solid brown stools after Mag citrate prep this AM. Discussed importance of pursuing a colonoscopy given her significant anemia and unremarkable EGD. However, having brown
stools without any overt GI bleeding. Hoping to go home given .
Objective
Data Reviewed
Laboratory Data:
Laboratory Results
09/25/24 06:29
09/25/24 06:29
Laboratory Results
Total Bilirubin 0.3 mg/dl (0.2-1.3) 09/23/24 16:34
AST 24 U/L (14-36) 09/23/24 16:34
ALT 26 U/L (0-35) 09/23/24 16:34
Alkaline Phosphatase 79 U/L (38-126) 09/23/24 16:34
Vital Signs and I&O:
Vital Signs
Temp Pulse Resp BP Pulse Ox
98.8 F 71 18 151/67 98
09/25/24 11:34 09/25/24 11:34 09/25/24 11:34 09/25/24 11:34 09/25/24 11:34
I&O
09/24/24 09/25/24 09/26/24
06:59 06:59 06:59
Intake Total 750 / 750 420 / 420 480 / 480
Balance 750 / 750 420 / 420 480 / 480
Physical Exam
Physical Exam
HEENT: Anicteric and Moist mucous membranes
Cardiology: Normal Sinus Rhythm
Pulmonary: Other (Normal WOB on room air)
GI: Soft, Non Distended and Non Tender
Extremities: No Edema
Neuro: Non Focal
--- NOTE | 2024-09-26 09:46 | W.DCSUMMARY ---
Documented by User: Erik Ruano MD, Resident 09/26/24 10:35
Discharge Summary
Discharge Data
Date of Admission: 09/23/24
Date of Discharge: 09/26/24
-
Pending Results: No
Hospital Course
Discharging Physician : Dr. Nora Muir and Dr. Erik Ruano
Disposition : Home
Principal Discharge diagnosis : Iron deficiency anemia due to suspected gastrointestinal bleed
Chronic Discharge diagnosis : Essential hypertension, Supraventricular arrhythmia
Hospital Course : Patient with PMH of essential hypertension, supraventricular arrhythmia presented with months of shortness of breath ,dyspnea on exertion, and intermittent dark color stools at insistence of PCP. Had CBC done outpatient, then PCP
informed her of low hemoglobin and to present to ED.
Problem #1:
Iron deficiency anemia
Suspected GI bleed: admission hemoglobin of 4.1 L---> 8.6L on discharge post 3 units of packed red blood cells. GI was consulted, performed EGD on 09/24/24 which showed a normal oesophagus, Gastritis and a single stomach polyp sent for biopsy.
Scheduled for colonoscopy on 09/28/24. She is to be on clear liquid diet throughout weekend, hold aspirin, and Protonix 40 mg PO daily. On discharge no fatigue ,weakness, shortness of breath, presyncope/syncope. Return to ED if any hematemesis,
melena, hematochezia.
Problem #2: Essential hypertension---Controlled. Continue lisinopril and verapamil on discharge.
Problem #3: Supraventricular Arrhythmia--- Digoxin PERSONAL BANKER was discontinued after Digoxin level elevated at 2.4. Hold digoxin until seen by outpatient party plan sales host/hostess. No palpitations, chest pain, fatigue, syncope during hospital course. Stable on
discharge.
Important imaging findings :
Procedure findings :
Upper GI endoscopy 09/24/24:
- Impression:
- Normal esophagus.
- Gastritis. Biopsied.
- A single gastric polyp vs thickened fold. Biopsied.
- Normal examined duodenum. Biopsied.
Discharge Plan
-
Patient Disposition: Home (Routine Discharge)
Discharge Diagnosis/Procedures: Iron deficiency anemia (received 3 unit PRBC transfusion), heme positive stools, hypertension, History of Supraventricular arrhythmia
Condition: Fair
Diet: Other diet
Additional Diets: clears until lifted by GI
Activity: As tolerated
Driving Restrictions: Not until seen by your Dr
Bathing Restrictions: None
Blood Work: CBC in 1 week with PCP
Activity Restrictions/Additional Instructions:
Patient is scheduled for a colonoscopy outpatient with GI on saturday, she should be on clear liquids until then.
Referrals:
Jorje Nichole MD [Family Provider] - in less than 1 week
Additional Discharge Medication Instructions: Stopped digoxin due to elevated digoxin level of 2.4, f/u with PCP/cardiology before restarting
Prescriptions:
New
pantoprazole 40 mg tablet,delayed release (DR/EC)
40 mg PO BID Qty: 30 0RF
Continued
cetirizine 10 mg Tablet
10 mg PO HS Qty: 0 0RF
verapamil 180 MG capsule,ext rel. pellets 24 hr
180 mg PO BID Qty: 0 0RF
lisinopril 5 mg Tablet
5 mg PO HS
Systane (PF) 0.4-0.3 % Dropperette
1 drp BOTH EYES BID
Discontinued
digoxin 250 mcg (0.25 mg) Tablet
250 mcg PO DAILY Qty: 0 0RF
aspirin 325 mg Tablet
650 mg PO DAILYPRN PRN (Reason: headache)
Quercetin Complex 500-225-33 mg Capsule
1 cap PO DAILY
Discharge Orders:
Discharge Patient (As Directed); Ordered 09/25/24
Ordered By: Erik Ruano
Discharge Date and Time
Discharge Date/Time: 09/25/24 15:25
Print Language: EQUATORIAL GUINEAN

Documented by User: Nora Muir MD 09/27/24 13:47
Discharge Summary
Discharge Data
Date of Admission: 09/23/24
Date of Discharge: 09/25/24
Hospital Course
Discharging Physician : Dr. Nora Muir and Dr. Erik Ruano
Disposition : Home
Principal Discharge diagnosis : Iron deficiency anemia due to suspected gastrointestinal bleed
Chronic Discharge diagnosis : Essential hypertension, supraventricular arrhythmia
Hospital Course : Patient with past medical history as stated above, who presented with shortness of breath, and dyspnea on exertion. Her hemoglobin on admission was noted to be extremely low at 4.1.
Problem #1:
Suspect acute on chronic anemia/iron deficiency anemia.
Her hemoglobin improved from 4.1 on admission to 8.6 on the day of discharge; this was status post 3 unit PRBC transfusion this admission.
GI was consulted and performed on EGD on 09/24/24 which showed a normal oesophagus, gastritis and a single stomach polyp sent for biopsy.
She was eager to be discharged soon, hence she was informed to follow-up with GI outpatient for colonoscopy scheduled on Saturday09/28/2024.
She can continue Protonix 40 mg twice daily until further directed by GI outpatient.
Important imaging findings :
Procedure findings :
Upper GI endoscopy 09/24/24:
- Impression:
- Normal esophagus.
- Gastritis. Biopsied.
- A single gastric polyp vs thickened fold. Biopsied.
- Normal examined duodenum. Biopsied.
Discharge Plan
-
Patient Disposition: Home (Routine Discharge)
Discharge Diagnosis/Procedures: Iron deficiency anemia (received 3 unit PRBC transfusion), heme positive stools, hypertension, History of Supraventricular arrhythmia
Condition: Fair
Diet: Other diet
Additional Diets: clears until lifted by GI
Activity: As tolerated
Driving Restrictions: Not until seen by your Dr
Bathing Restrictions: None
Blood Work: CBC in 1 week with PCP
Activity Restrictions/Additional Instructions:
Patient is scheduled for a colonoscopy outpatient with GI on saturday, she should be on clear liquids until then.
Referrals:
Jorje Nichloe MD [Family Provider] - in less than 1 week
Additional Discharge Medication Instructions: Stopped digoxin due to elevated digoxin level of 2.4, f/u with PCP/cardiology before restarting
Prescriptions:
New
pantoprazole 40 mg tablet,delayed release (DR/EC)
40 mg PO BID Qty: 30 0RF
Continued
cetirizine 10 mg Tablet
10 mg PO HS Qty: 0 0RF
verapamil 180 MG capsule,ext rel. pellets 24 hr
180 mg PO BID Qty: 0 0RF
lisinopril 5 mg Tablet
5 mg PO HS
Systane (PF) 0.4-0.3 % Dropperette
1 drp BOTH EYES BID
Discontinued
digoxin 250 mcg (0.25 mg) Tablet
250 mcg PO DAILY Qty: 0 0RF
aspirin 325 mg Tablet
650 mg PO DAILYPRN PRN (Reason: headache)
Quercetin Complex 500-225-33 mg Capsule
1 cap PO DAILY
Discharge Orders:
Discharge Patient (As Directed); Ordered 09/25/24
Ordered By: Erik Ruano
Discharge Date and Time
Discharge Date/Time: 09/25/24 15:25
Print Language: EQUATORIAL GUINEAN
== END 2024-09-25 15:25 | disposition home or self-care (01) | DRG 378 ==
LOC: 4 EAST ACU 19:07
PROVIDERS: Registered Nurse; ADMITTING PHYSICIAN Internal Medicine; ATTENDING PHYSICIAN Internal Medicine; CONSULT PHYSICIAN Internal Medicine Gastroenterology; EMERGENCY PHYSICIAN Emergency Medicine; FAMILY PHYSICIAN Family Medicine
PROC: 30233N1 Transfusion of Nonautologous Red Blood Cells into Peripheral Vein, Percutaneous Approach (ICD-10-PCS; 2024-09-23)
PROC: 0DB98ZX Excision of Duodenum, Via Natural or Artificial Opening Endoscopic, Diagnostic (ICD-10-PCS; 2024-09-24)
PROC: 0DB68ZX Excision of Stomach, Via Natural or Artificial Opening Endoscopic, Diagnostic (ICD-10-PCS; 2024-09-24)
DX: K92.2 Gastrointestinal hemorrhage, unspecified (principal); D62 Acute posthemorrhagic anemia; I47.10 Supraventricular tachycardia, unspecified; K31.7 Polyp of stomach and duodenum; I10 Essential (primary) hypertension; K29.70 Gastritis, unspecified, without bleeding; Z79.899 Other long term (current) drug therapy; Z79.82 Long term (current) use of aspirin
CPT/HCPCS: 88305; 36415; 36430; 80048; 80053; 80162; 82728; 83540; 83550; 84155; 84165; 84439; 84443; 85014; 85018; 85025; 85027; 85045; 86850; 86900; 86901; 86920; 88342; 96374; 99285; P9016

== ENCOUNTER 2024-09-28 06:20 | Day surgery (SDC) | payer MEDICARE, OTHER, SELFPAY | END 2024-09-28 14:51 | disposition home or self-care (01) | LOC: GI 06:20 | PROVIDERS: ATTENDING PHYSICIAN Specialist; FAMILY PHYSICIAN Family Medicine | DX: K52.9 Noninfective gastroenteritis and colitis, unspecified (principal); D50.0 Iron deficiency anemia secondary to blood loss (chronic); K57.30 Diverticulosis of large intestine without perforation or abscess without bleeding | CPT/HCPCS: 45380; 88305; 88342 ==

== ENCOUNTER → 2024-09-30 11:42 | Outpatient (REF) | payer MEDICARE, OTHER, SELFPAY ==
[2024-09-30 12:38] LABS: % Basophils 1.2 % (0-2); % Eosinophils 2.8 % (0-6); % Immature Granulocytes 0.5 % (0-0.5); % Lymphocytes 27.4 % (20.5-51.1); % Monocytes 10.7 % (1.7-9.3); % Neutrophils 57.4 % (42.2-75.2); Absolute Basophils 0.1 10^3/uL (0-0.2); Absolute Eosinophils 0.2 10^3/uL (0-0.7); Absolute Lymphocytes 1.8 10^3/uL (1.2-3.4); Absolute Monocytes 0.7 10^3/uL (0.1-0.6); Absolute Neutrophils 3.7 10^3/uL (1.4-6.5); Hematocrit 29.8 % (37.0-47.0); Mean Corp Hgb Conc. 30.2 g/dL (33.0-37.0); Mean Corpuscular Hgb 21.2 pg (27.0-31.0); Mean Corpuscular Volume 70.1 fL (81.0-99.0); Mean Platelet Volume 9.8 fL (7.4-10.4); Nucleated Red Blood Cells % 0 %; Platelet Count 279 10^3/uL (130-400); Red Blood Cell Count 4.25 10^6/uL (4.20-5.40); White Blood Cell Count 6.5 10^3/uL (4.8-10.8)
== END ==
LOC: REG 11:42
PROVIDERS: ATTENDING PHYSICIAN Family Medicine
DX: D64.9 Anemia, unspecified (principal)
CPT/HCPCS: 36415; 85025

== ENCOUNTER → 2024-10-14 08:59 | Outpatient (REF) | payer MEDICARE, OTHER, SELFPAY ==
[2024-10-14 10:52] LABS: % Basophils 2.6 % (0-2); % Immature Granulocytes 0.6 % (0-0.5); % Monocytes 10.9 % (1.7-9.3); % Neutrophils 48.9 % (42.2-75.2); Absolute Basophils 0.1 10^3/uL (0-0.2); Absolute Eosinophils 0.1 10^3/uL (0-0.7); Absolute Lymphocytes 1.2 10^3/uL (1.2-3.4); Absolute Monocytes 0.4 10^3/uL (0.1-0.6); Absolute Neutrophils 1.7 10^3/uL (1.4-6.5); Hematocrit 34.2 % (37.0-47.0); Mean Corp Hgb Conc. 29.2 g/dL (33.0-37.0); Mean Corpuscular Hgb 20.8 pg (27.0-31.0); Mean Corpuscular Volume 71.3 fL (81.0-99.0); Mean Platelet Volume 9.2 fL (7.4-10.4); Nucleated Red Blood Cells % 0 %; Platelet Count 511 10^3/uL (130-400); Red Cell Dist. Width 28.1 % (11.5-14.5); White Blood Cell Count 3.5 10^3/uL (4.8-10.8)
[2024-10-14 11:39] LABS: Ferritin 8.2 ng/ml (11.1-264.0)
[2024-10-14 11:44] LABS: Iron 33 ug/dl (37-170)
[2024-10-14 11:53] LABS: Percent Saturation 5 % (20-50); Total Iron Binding Capacity 575 ug/dl (265-497)
== END ==
LOC: REG 08:59
PROVIDERS: ATTENDING PHYSICIAN Family Medicine
DX: D50.0 Iron deficiency anemia secondary to blood loss (chronic) (principal); K51.00 Ulcerative (chronic) pancolitis without complications
CPT/HCPCS: 36415; 82728; 83540; 83550; 85025

== ENCOUNTER → 2024-11-07 11:51 | Outpatient (REF) | payer MEDICARE, OTHER, SELFPAY ==
[2024-11-07 12:10] LABS: % Basophils 1.6 % (0-2); % Eosinophils 3.5 % (0-6); % Immature Granulocytes 0.2 % (0-0.5); % Lymphocytes 40.9 % (20.5-51.1); % Monocytes 9.8 % (1.7-9.3); Absolute Basophils 0.1 10^3/uL (0-0.2); Absolute Eosinophils 0.2 10^3/uL (0-0.7); Absolute Lymphocytes 2.1 10^3/uL (1.2-3.4); Absolute Monocytes 0.5 10^3/uL (0.1-0.6); Absolute Neutrophils 2.2 10^3/uL (1.4-6.5); Hematocrit 33.8 % (37.0-47.0); Hemoglobin 10.3 g/dL (12.0-16.0); Mean Corp Hgb Conc. 30.5 g/dL (33.0-37.0); Mean Corpuscular Hgb 21.1 pg (27.0-31.0); Mean Corpuscular Volume 69.3 fL (81.0-99.0); Mean Platelet Volume 8.6 fL (7.4-10.4); Nucleated Red Blood Cells % 0 %; Platelet Count 322 10^3/uL (130-400); Red Blood Cell Count 4.88 10^6/uL (4.20-5.40); Red Cell Dist. Width 25.6 % (11.5-14.5); White Blood Cell Count 5.1 10^3/uL (4.8-10.8)
[2024-11-07 12:23] LABS: Iron 34 ug/dl (37-170)
[2024-11-07 12:33] LABS: Percent Saturation 5 % (20-50); Total Iron Binding Capacity 599 ug/dl (265-497)
[2024-11-07 12:38] LABS: Anisocytosis 2+; Hypochromasia 2+; Microcytosis Slight; Normal RBC Morphology No; Polychromasia Slight
[2024-11-07 13:07] LABS: Ferritin 7.2 ng/ml (11.1-264.0)
== END ==
LOC: REG 11:51
PROVIDERS: ATTENDING PHYSICIAN Family Medicine
DX: D50.0 Iron deficiency anemia secondary to blood loss (chronic) (principal); A09 Infectious gastroenteritis and colitis, unspecified
CPT/HCPCS: 36415; 82728; 83540; 83550; 85025

== ENCOUNTER → 2024-12-17 13:14 | Outpatient (REF) | payer MEDICARE, OTHER, SELFPAY ==
[2024-12-17 13:47] LABS: Hematocrit 35.4 % (37.0-47.0); Hemoglobin 10.5 g/dL (12.0-16.0); Mean Corp Hgb Conc. 29.7 g/dL (33.0-37.0); Mean Corpuscular Volume 73.4 fL (81.0-99.0); Nucleated Red Blood Cells % 0 %; Platelet Count 330 10^3/uL (130-400); Red Cell Dist. Width 19.6 % (11.5-14.5)
[2024-12-17 14:13] LABS: Iron 30 ug/dl (37-170)
[2024-12-17 14:24] LABS: Total Iron Binding Capacity 555 ug/dl (265-497)
[2024-12-17 14:51] LABS: Ferritin 9.7 ng/ml (11.1-264.0)
== END ==
LOC: REG 13:14
PROVIDERS: ATTENDING PHYSICIAN Family Medicine
DX: D50.0 Iron deficiency anemia secondary to blood loss (chronic) (principal)
CPT/HCPCS: 36415; 82728; 83540; 83550; 85025

== ENCOUNTER → 2025-01-18 12:12 | Outpatient (REF) | payer MEDICARE, OTHER, SELFPAY ==
[2025-01-18 13:31] LABS: Iron 184 ug/dl (37-170)
[2025-01-18 13:40] LABS: Total Iron Binding Capacity 489 ug/dl (265-497)
[2025-01-18 13:50] LABS: Hematocrit 44.3 % (37.0-47.0); Hemoglobin 13.6 g/dL (12.0-16.0); Mean Corp Hgb Conc. 30.7 g/dL (33.0-37.0); Mean Corpuscular Volume 78.4 fL (81.0-99.0); Nucleated Red Blood Cells % 0 %; Platelet Count 256 10^3/uL (130-400); Red Cell Dist. Width 23.8 % (11.5-14.5)
[2025-01-18 14:06] LABS: Ferritin 20.8 ng/ml (11.1-264.0)
== END ==
LOC: REG 12:12
PROVIDERS: ATTENDING PHYSICIAN Family Medicine
DX: D50.0 Iron deficiency anemia secondary to blood loss (chronic) (principal)
CPT/HCPCS: 36415; 82728; 83540; 83550; 85025

== ENCOUNTER → 2025-03-05 11:46 | Outpatient (REF) | payer MEDICARE, OTHER, SELFPAY ==
[2025-03-05 12:33] LABS: Hematocrit 39.3 % (37.0-47.0); Hemoglobin 12.8 g/dL (12.0-16.0); Mean Corp Hgb Conc. 32.6 g/dL (33.0-37.0); Mean Corpuscular Volume 86.2 fL (81.0-99.0); Nucleated Red Blood Cells % 0 %; Platelet Count 278 10^3/uL (130-400); Red Cell Dist. Width 21.0 % (11.5-14.5)
[2025-03-05 12:49] LABS: Iron 46 ug/dl (37-170)
[2025-03-05 12:59] LABS: Total Iron Binding Capacity 497 ug/dl (265-497)
== END ==
LOC: REG 11:46
PROVIDERS: ATTENDING PHYSICIAN Family Medicine
DX: D50.0 Iron deficiency anemia secondary to blood loss (chronic) (principal)
CPT/HCPCS: 36415; 83540; 83550; 85025

== ENCOUNTER → 2025-05-11 15:30 | Outpatient (REF) | payer MEDICARE, OTHER, SELFPAY ==
[2025-05-11 17:06] LABS: Hematocrit 42.3 % (37.0-47.0); Hemoglobin 13.2 g/dL (12.0-16.0); Mean Corp Hgb Conc. 31.2 g/dL (33.0-37.0); Mean Corpuscular Volume 91.4 fL (81.0-99.0); Nucleated Red Blood Cells % 0 %; Platelet Count 270 10^3/uL (130-400); Red Cell Dist. Width 13.9 % (11.5-14.5)
[2025-05-11 17:29] LABS: ALT (SGPT) 24 U/L (0-35); AST (SGOT) 22 U/L (14-36); Albumin 4.3 g/dl (3.5-5.0); Alkaline Phosphatase 70 U/L (38-126); Blood Urea Nitrogen 24 mg/dl (7-17); Calcium 9.2 mg/dl (8.4-10.2); Carbon Dioxide 27 mmol/L (22-30); Chloride 104 mmol/L (98-107); Glucose 106 mg/dl (70-99); Iron 290 ug/dl (37-170); Potassium 3.9 mmol/L (3.5-5.1); Sodium 136 mmol/L (135-145); Total Protein 6.7 g/dl (6.3-8.2); eGFR > 60.00
[2025-05-11 17:38] LABS: Total Iron Binding Capacity 490 ug/dl (265-497)
== END ==
LOC: REG 15:30
PROVIDERS: ATTENDING PHYSICIAN Family Medicine
DX: D50.0 Iron deficiency anemia secondary to blood loss (chronic) (principal); E78.2 Mixed hyperlipidemia; R73.01 Impaired fasting glucose; R74.01 Elevation of levels of liver transaminase levels; K51.00 Ulcerative (chronic) pancolitis without complications
CPT/HCPCS: 36415; 80053; 83540; 83550; 85025